=== PATIENT | female | born 1985 | race Caucasian/White ===

== ENCOUNTER 2021-12-24 10:35 | Emergency (ER) | payer OTHER, SELFPAY ==
[2021-12-24] VITALS (19 sets, daily range): BP systolic 105–139; BP diastolic 68–87; PULSE 48–87; RESP 7–15; TEMP 36.4–36.6; O2SAT 96–100
--- NOTE | ~2021-12-24 | XR_ITS ---
EXAMINATION: XR chest 2V DATE: 12/24/2021 11:41 INDICATION: Chest pain. Leg swelling. TECHNIQUE: PA and lateral views of the chest were obtained. COMPARISON: Chest radiograph dated 10/13/2018 FINDINGS: The lungs remain clear with no focal airspace opacities, pulmonary edema, pleural effusion or pneumot horax. The cardiomediastinal silhouette is normal. Mild to moderate thoracic spondylosis. Cholecystec diya clips in the right upper quadrant. IMPRESSION: 1. No acute cardiopulmonary disease. Reviewed, dictated and finalized at location B.
--- NOTE | 2021-12-24 11:20 | ECG_ITS ---
Measurements Intervals [place] Rate: 62 P: 55 WA: 215 QRS: 41 QRSD: 101 T: 37 QT: 440 QTc: 449 Interpretive Statements SINUS RHYTHM WITH FIRST DEGREE AV BLOCK INCOMPLETE RIGHT BUNDLE BRANCH BLOCK ABNORMAL ECG COMPARED TO ECG 10/13/2018 10:06:40 FIRST DEGREE AV BLOCK NOW PRESENT Electronically Signed On 12-25-2021 16:24:32 CDT by Jass Farrell M.D.
--- NOTE | 2021-12-24 11:27 | ED.GENADULT ---
HPI - General Adult General Chief complaint: Unspecified Stated complaint: bilat leg swelling Time Seen by Provider: 12/24/21 11:00 History of Present Illness HPI narrative: 36-year-old female presents to the emergency room for evaluation of bilateral lower extremity swelling for last 3 nights. Patient states at the end of the day her feet and ankles are swelling, commenting that is pitting edema. Patient is also complaining of increased fatigue, malaise, and swelling to her abdomen. Patient reports that she has a history of hypothyroidism, but has not had her TSH level checked in over 2 years. Patient complaining of hair falling out, easily bruising, and sensitivity to cold temperatures. Related Data Home Medications Medication Instructions Recorded Confirmed levothyroxine 50 mcg tablet 1 tablet DAILY 12/24/21 12/24/21 lumateperone 42 mg capsule 42 mg PO DAILY 12/24/21 12/24/21 (Caplyta) Allergies Allergy/AdvReac Type Severity Reaction Status Date / Time tree nut Allergy Unknown Anaphylactic Verified 12/24/21 11:13 Shock Review of Systems Review of Systems: CONSTITUTIONAL: Reports malaise EYES: Denies visual changes, redness, or discharge. ENT: Denies rhinorrhea, congestion, sore throat, or otalgia. CARDIOVASCULAR: Reports occasional chest pain RESPIRATORY: Reports occasional shortness of breath GASTROINTESTINAL: Denies abdominal pain, nausea, vomiting, or diarrhea. GENITOURINARY: Denies dysuria or hematuria. SKIN: Reports easily bruising MUSCULOSKELETAL: Denies back pain, joint pain, or myalgia. NEUROLOGIC: Reports increased weakness PSYCHIATRIC: Reports anxiety or depression. Exam Narrative: GENERAL: Well-appearing, well-nourished, and in no acute distress. HEAD: Normocephalic, atraumatic. EYES: PERRLA and EOMI. NECK: Supple. No adenopathy or masses. No carotid bruits or JVD CHEST: Clear to auscultation. No respiratory distress. No wheezes rales or rhonchi HEART: Regular rate and rhythm. No murmur heard. Normal peripheral pulses. ABDOMEN: Soft, nontender, nondistended, normal active bowel sounds. EXTREMITIES: Normal range of motion. No edema. SKIN: Warm, dry, no rash. NEURO: No focal deficits. Alert and oriented x3. PSYCH: Normal mood and affect. Course Vital Signs Vital signs: Vital Signs Temperature 36.4 C L 12/24/21 10:47 Pulse Rate 72 12/24/21 10:47 Respiratory Rate 15 12/24/21 10:47 Blood Pressure 139/87 12/24/21 10:47 Pulse Oximetry 100 12/24/21 10:47 Oxygen Delivery Room Air 12/24/21 10:47 Temperature 36.4 C L 12/24/21 10:47 Pulse Rate 51 L 12/24/21 13:45 Respiratory Rate 8 L 12/24/21 13:45 Blood Pressure 106/68 12/24/21 13:31 Pulse Oximetry 96 12/24/21 13:45 Oxygen Delivery Room Air 12/24/21 10:47 Medical Decision Making MDM Narrative Medical decision making narrative: 36-year-old female presents with evidence of swelling to bilateral lower extremities. There is no evidence of volume overload on exam, no evidence of renal failure, heart failure, or liver failure. TSH was within normal limits. EKG and chest x-ray showed no acute cardiopulmonary abnormalities. Discussed findings with patient, and referred her back to her PCP for further work-up. Vital Signs Vital Signs: Vital Signs Temperature 36.4 C L 12/24/21 10:47 Pulse Rate 72 12/24/21 10:47 Respiratory Rate 15 12/24/21 10:47 Blood Pressure 139/87 12/24/21 10:47 Pulse Oximetry 100 12/24/21 10:47 Oxygen Delivery Room Air 12/24/21 10:47 Temperature 36.4 C L 12/24/21 10:47 Pulse Rate 51 L 12/24/21 13:45 Respiratory Rate 8 L 12/24/21 13:45 Blood Pressure 106/68 12/24/21 13:31 Pulse Oximetry 96 12/24/21 13:45 Oxygen Delivery Room Air 12/24/21 10:47 Lab Data Result diagrams: 12/24/21 11:54 12/24/21 11:54 Labs: Lab Results 12/24/21 12/24/21 12/24/21 Range/Units 11:54 11:54 12:36 WBC 8.5 (4.5-10.0)
--- NOTE | 2021-12-24 11:38 | PC.NURSE ---
Pt off floor to radiology.
[2021-12-24 12:06] LABS: Basophils Absolute Auto 0.1 K/mm3 (0.0-0.1); Basophils Percent Auto 0.8 % (0.2-1.2); Eosinophils Absolute Auto 0.3 K/mm3 (0-0.3); Eosinophils Percent Auto 3.5 % (0-4.4); Hematocrit 35.9 % (37.0-47.0); Hemoglobin 10.8 g/dL (12.0-15.0); Immature Granulocyte Absolute 0.02 K/mm3 (0.00-0.031); Immature Granulocyte Percent A 0.2 % (0-0.5); Lymphocytes Absolute Auto 1.66 K/mm3 (0.9-3.2); Lymphocytes Percent Auto 19.6 % (18.3-44.2); Mean Corpuscular HGB Conc 30.1 g/dl (32-36); Mean Corpuscular Volume 76.4 fl (80-100); Mean Platelet Volume 11.2 fl (7.4-10.4); Monocytes Absolute Auto 0.4 K/mm3 (0.1-0.6); Monocytes Percent Auto 4.8 % (2.6-8.5); Neutrophils Percent Auto 71.1 % (45.5-73.1); Platelet Count Result 366 k/mm3 (150-375); Red Cell Distribution Width 15.8 % (11.5-14.5); White Blood Count 8.5 K/mm3 (4.5-10.0)
[2021-12-24 12:16] LABS: Alanine Aminotransferase 18 U/L (6-35); Albumin Level 4.2 g/dL (3.5-5.1); Alkaline Phosphatase 56 U/L (38-126); Anion Gap 8 mmol/L (8-16); Aspartate Amino Transferase 26 U/L (14-36); Bilirubin,Total 0.4 mg/dL (0.2-1.3); Blood Urea Nitrogen 10 mg/dL (7-17); Calcium 8.7 mg/dL (8.4-10.2); Carbon Dioxide 26 mmol/L (22-30); Chloride 105 mmol/L (98-107); Estimated CRCL calculation 95 ml/min; Estimated Glomerular Filt Rate > 60; Glucose 97 mg/dL (65-110); Potassium 4.3 mmol/L (3.4-5.0); Sodium 139 mmol/L (137-145)
[2021-12-24 12:27] LABS: NT Pro B Type Natriuretic Pept 107 pg/mL (5-100)
[2021-12-24 12:31] LABS: Troponin I < 0.012 ng/mL (0.000-0.034)
[2021-12-24 13:28] LABS: Add Urine Microscopic? YES; Appearance Urine Clear (Clear); Bilirubin Urine 1+ (Negative); Blood Urine 3+ (Negative); Color Urine Yellow (Yellow); Glucose Urine UA Negative (Negative); Ketones Urine Trace mg/dL (Negative); Leukocyte Esterase Ur Negative LEU/UL (Negative); Mucus Urine Moderate /lpf; Nitrate Urine Negative (Negative); Protein Urine 1+ mg/dL (Negative); RBC Urine >75 /hpf (0-2); Specific Grav Ur >= 1.030 (1.001-1.035); Squamous Epithelial Cell Urine Occasional /hpf (Few); Urobilinogen Urine 0.2 mg/dL (<2.0); pH Urine 6.5 (5.0-9.0)
== END 2021-12-24 14:28 | disposition home or self-care (01) ==
PROVIDERS: Emergency Provider Nurse Practitioner Family
DX: R60.0 Localized edema (principal); E03.9 Hypothyroidism, unspecified; I44.0 Atrioventricular block, first degree; I45.10 Unspecified right bundle-branch block
CPT/HCPCS: 36415; 71046; 80053; 81001; 83880; 84443; 84484; 85025; 87086; 87088; 93005; 99284

== ENCOUNTER 2022-12-23 11:14 | Emergency (ER) | payer OTHER, SELFPAY ==
[2022-12-23 11:21] VITALS: BP 114/77; PULSE 75; RESP 16; TEMP 36.3; O2SAT 98
--- NOTE | 2022-12-23 11:30 | ED.URI ---
HPI - URI/Sore Throat General Chief Complaint: Upper Respiratory Infection Stated Complaint: cough/trouble breathing History of Present Illness HPI Narrative: Pt is a 37 y/o female, PMHx of asthma and tobacco dependency, presents to EC one week hx of increased coughing, wheezing and SOB. She began running fevers two days ago and now associates left otalgia. She is taking OTC cold medications and APAP/Motrin with adequate fever relief. She ran out of her albuterol inhaler and no longer has nebulizer solution at home. she continues to smoke. She denies chance of , known sick contacts or COV exposures. Related Data Allergies Allergy/AdvReac Type Severity Reaction Status Date / Time tree nut Allergy Unknown Anaphylactic Verified 12/24/21 11:13 Shock Review of Systems Constitutional: Comments: refer to HPI, tmax reported 101F ENT: Comments: refer to HPI Cardiovascular: Comments: no chest pain, palpitations or syncope Respiratory: Comments: cough, wheezing, refer to HPI Exam Const: General: cooperative, healthy appearing, comfortable and no acute distress Nutritional Appearance: average body habitus Orientation/consciousness: oriented to person, oriented to place, oriented to time and patient oriented x3 Limitations: no limitations Other: pt appears older than stated age. She smells heavily of cigarette smoke She is in NAD HENMT: Head: normal to inspection and normocephalic Ears: TM normal on the right and TM abnormal (left tm is erythematous with purulent effusion. serous pattern to right ear) Face and sinus: face symmetric and other (frontal and maxillary sinuses are TTP. nasal mucosa is erythematous ) Throat: posterior oropharynx normal, tonsils normal and uvula midline Eyes: General: appearance normal, both eyes and all related structures Visual Oquendo: normal visual oquendo by confrontation Alignment and Position: alignment normal Conjunctivae: conjunctivae normal Neck: Neck: normal visual inspection, full ROM, no lymphadenopathy and no meningeal signs Resp: Auscultation: wheezes (End I and end E wheezing noted throughout lung oquendo) Other: no rales or rhonchi noted Cardio: Palpation: normal PMI Rate: regular rate Rhythm: regular rhythm Heart sounds: S1 normal heart sound present and S2 normal heart sound present GI: Inspection: normal to inspection Back/Spine/Pelvis: Back: no CVA tenderness Skin: General skin exam: normal color Rashes: no rashes Neuro: General: oriented to person, oriented to place, oriented to time and patient oriented x3 Cranial nerves: Yes CN's II-XII intact bilaterally Extrem: Other: no lower extremity edema, no calf TTP Course Course Emergency Course: plan: to treat with oral abx for left AOM, steroid taper, inhaler and nebulizer solution refilled. Pt will FU with PCP if symptoms are not resolving in 3 days, ER if condition worsens. Level of Care: Express Care Visit ([id number]) Vital Signs Vital signs: Vital Signs Temperature 36.3 C L 12/23/22 11:21 Pulse Rate 75 12/23/22 11:21 Respiratory Rate 16 12/23/22 11:21 Blood Pressure 114/77 12/23/22 11:21 Pulse Oximetry 98 12/23/22 11:21 Oxygen Delivery Room Air 12/23/22 11:21 Temperature 36.3 C L 12/23/22 11:21 Pulse Rate 75 12/23/22 11:21 Respiratory Rate 16 12/23/22 11:21 Blood Pressure 114/77 12/23/22 11:21 Pulse Oximetry 98 12/23/22 11:21 Oxygen Delivery Room Air 12/23/22 11:21 MDM - URI/Sore Throat MDM Narrative Medical decision making narrative: abx, steroids, inhaler/nebulizer Differential Diagnosis Differential diagnosis: Likely upper respiratory infection, otitis media, sinusitis, viral infection, bronchitis and other (pneumonia) Discharge Plan Discharge Clinical Impression: Acute left otitis media, Bronchitis Patient Disposition: Home, Self-Care Condition: Stable Instructions: Antibiotic Form, How to
== END 2022-12-23 11:57 | disposition home or self-care (01) ==
PROVIDERS: Emergency Provider Nurse Practitioner Family
DX: J40 Bronchitis, not specified as acute or chronic (principal); H66.92 Otitis media, unspecified, left ear
CPT/HCPCS: 99213; G0463

== ENCOUNTER 2024-07-19 16:42 | Emergency (ER) | payer OTHER, SELFPAY ==
[2024-07-19 16:45] VITALS: BP 107/63; PULSE 88; RESP 16; TEMP 36.6; O2SAT 98
--- NOTE | 2024-07-19 16:52 | ED_ITS ---
HPI - URI/Sore Throat General Chief Complaint: Upper Respiratory Infection Stated Complaint: cough/chills Time Seen by Provider: 07/19/24 16:55 Source: patient, RN notes reviewed and old records reviewed Mode of arrival: ambulatory Limitations: no limitations History of Present Illness HPI Narrative: 39 year old female who presents to [facility] care with complaints of having cough starting yesterday, denies any known fever admits to some general malaise and chills with some scratchy throat. Patient reports that she has been taking Ibuprofen for her symptoms. MD elicited complaint: cough Pertinent past history: asthma and other (bronchitis, tobacco use) Onset (ago): day(s) (2) Able to tolerate fluids by mouth: Yes Treatments prior to arrival: ibuprofen Related Data Allergies Allergy/AdvReac Type Severity Reaction Status Date / Time tree nut Allergy Unknown Anaphylactic Verified 12/24/21 11:13 Shock Review of Systems Review of Systems: CONSTITUTIONAL: Reports malaise, chills, sweats, no known fever. EYES: Denies visual changes, redness, or discharge. ENT: Reports rhinorrhea, congestion, sinus pain, no otalgia and scratchy sore throat. CARDIOVASCULAR: Denies chest pain, palpitations, or edema. RESPIRATORY: Reports cough.? Denies dyspnea. GASTROINTESTINAL: Denies abdominal pain, nausea, vomiting, diarrhea SKIN: Denies rash or itching. MUSCULOSKELETAL: Denies myalgia. NEUROLOGIC: Denies headache. All systems reviewed & are unremarkable except as noted in HPI and below PMFSH Past Medical History Medical History (Updated 07/21/24 @ 10:50 by Gina Hoover NP) DVT (deep venous thrombosis) 2008 Asthma Bronchitis Kidney stones Hypothyroidism Surgical History Surgical History (Updated 07/21/24 @ 10:43 by Gina Hoover NP) History of cholecystectomy H/O tubal ligation Social History Social History (Updated 07/21/24 @ 10:40 by Gina Hoover NP) Smoking packs per day: 0.5 Smoking cigarettes per day: 10.0 Smoking status: Current every day smoker Tobacco type: cigarettes Alcohol intake: current Alcohol use details: social Substance use type: does not use Gender identity (if verbalized by the patient): Female Comments At time of signature, agree with nursing past medical, surgical, social and family history. There is no relevant family history pertinent to the presenting complaint Exam Narrative: GENERAL: Well-appearing, well-nourished, and in no acute distress. HEAD: Normocephalic EYES: PERRLA, conjunctivae clear ENT: Nares clear, turbinates edematous and erythematous, clear discharge. Mucous membranes moist. TM pearly hutchins with dull light reflex bilaterally; no tragal tenderness. Oropharynx erythematous without lesions. Tonsils not enlarged and without exudate, no drooling, no hoarseness, no trismus, uvula midline.post nasal drainage NECK: Supple. No lymphadenopathy CHEST: Clear to auscultation, breath sounds equal. No wheezing, rhonchi, rales, or stridor. No respiratory distress, speaks in full sentences.dry cough noted SAO2 98% on room air HEART: Regular rate and rhythm. No murmur heard. SKIN: Warm, dry, no rash. NEURO: Alert and oriented x3. PSYCH: Normal mood and affect Course Course Emergency Course: Patient is aware of diagnosis, understands and agrees to treatment plan.? Anticipatory guidance given.? Patient agrees to follow-up as directed and is aware of reasons to seek care at the emergency department. Portions of this record may have been created with voice recognition software Level of Care: Express Care Visit Vital Signs Vital signs: Vital Signs Temperature 36.6 C 07/19/24 16:45 Pulse Rate 88 07/19/24 16:45 Respiratory Rate 16 07/19/24 16:45 Blood Pressure 107/63 07/19/24 16:45 Pulse Oximetry 98 07/19/24 16:45 Oxygen Delivery Room Air 07/19/24 16:45 Temperature 36.6 C 07/19/24 16:53 Pulse Rate 88 07/19/24 16:53 Respiratory Rate 16 07/19/24 16:53 Blood Pressure 107/63 07/19/24 16:53 Pulse Oximetry 98 07/19/24 16:53 Oxygen Delivery Room Air 07/19/24 16:45 Reviewed MDM - URI/Sore Throat MDM Narrative Medical decision making narrative: Differential diagnosis considered: Art virus, strep pharyngitis, allergic rhinitis, upper respiratory tract infection, sinusitis, rhinosinusitis, nasopharyngitis. viral pharyngitis, otitis media, otitis externa, pneumonia, bronchitis, viral cough syndrome, viral syndrome, and influenza.? Exam findings show no acute concerns or changes; patient is non-toxic appearing and is in no distress.? Patient is appropriate for outpatient treatment and follow-up. Differential Diagnosis Differential diagnosis: Likely upper respiratory infection, viral infection, pharyngitis and other (cough) Medical Records Attestation: I reviewed the patient's medical records. Lab Data Attestation: I reviewed the patient's lab results. Lab results narrative: Covid antigen negative, Influenza A negative,Influenza B negative Labs: Lab Results 07/19/24 Range/Units 16:50 POC Influenza A Ag Negative (Negative) POC Influenza B Ag Negative (Negative) POC SARS CoV-2 Ag Negative (Negative) reviewed Critical Care Time Critical Care Time Critical Care Time: No Discharge Plan Discharge Clinical Impression: Cough in adult Upper respiratory infection Qualifiers: URI type: unspecified URI Qualified Code(s): J06.9 - Acute upper respiratory infection, unspecified Patient Disposition: Home, Self-Care Condition: Stable Instructions: Antibiotic Form Additional Instructions: Increase fluids especially juices and water [id number] cough and cold medicine of your choice for your symptoms Kell daily and may include plain Sudafed daily for congestion Continue your inhaler/nebulizer as directed Steroids as directed--take with food heat to the face 20-30 minutes 4-6 times a day for pain Salt water gargles, throat lozenges or throat sprays as desired If your symptoms persist, change or worsen significantly before you can contact your personal physician then please, without delay, go to the emergency department for further evaluation. Follow-up with PCP in 7-10 days or sooner if needed Patient Language: Bulgarian Prescriptions: New prednisone 20 mg tablet 20 mg PO BID Qty: 10 0RF Rx Instructions: take with food fexofenadine [Kell Allergy] 180 mg tablet 180 mg PO DAILY Qty: 20 0RF albuterol sulfate 90 mcg/actuation HFA aerosol inhaler 2 puff inhalation QID PRN (Reason: shortness of breath or wheezing) Qty: 8.5 0RF No Action prednisone 10 mg tablets,dose pack See Taper PO DAILY 12 Days Qty: 42 0RF Taper: Prednisone Taper from 60 mg;12 days 60 mg DAILY for 2 Days and 0 Hour 50 mg DAILY for 2 Days and 0 Hour 40 mg DAILY for 2 Days and 0 Hour 30 mg DAILY for 2 Days and 0 Hour 20 mg DAILY for 2 Days and 0 Hour 10 mg DAILY for 2 Days and 0 Hour albuterol sulfate [Proventil HFA] 90 mcg/actuation HFA aerosol inhaler 1 inh inhalation QID PRN (Reason: shortness of breath or wheezing) Qty: 8.5 0RF amoxicillin-pot clavulanate 875-125 mg tablet 1 tablet PO Q12H Qty: 20 0RF albuterol sulfate 2.5 mg /3 mL (0.083 %) solution for nebulization 2.5 mg inhalation Q4H PRN (Reason: wheezing) Qty: 90 0RF Follow-up/Referrals: Charla,Essence Murillo MD [Primary Care Provider] - Time of Disposition: 17:19 Quality [place] Coma Scale Eyes: Open Verbal: Oriented and Alert Motor: Follows Commands Silvio Coma Total Score: 15
[2024-07-19 16:53] VITALS: BP 107/63; PULSE 88; RESP 16; TEMP 36.6; O2SAT 98
[2024-07-19 17:11] LABS: EDCOVIDSCREEN Negative (Negative); EDINFLUASCREEN Negative (Negative); EDINFLUBSCREEN Negative (Negative)
== END 2024-07-19 17:30 | disposition home or self-care (01) ==
PROVIDERS: Emergency Provider Registered Nurse; PCP Family Medicine
DX: J06.9 Acute upper respiratory infection, unspecified (principal); E03.9 Hypothyroidism, unspecified; F17.210 Nicotine dependence, cigarettes, uncomplicated; Z86.718 Personal history of other venous thrombosis and embolism; Z20.822 Contact with and (suspected) exposure to COVID-19
CPT/HCPCS: 87426; 87804; 99213; G0463

== ENCOUNTER 2024-10-19 11:57 | Emergency (ER) | payer OTHER, SELFPAY ==
--- OUTSIDE RECORDS SUMMARY | 2024-10-19 11:59 | XMS_ITS | Encounter Summary ---
Author Organization [facility] Address [address] [place] [address] Phone Care Team Providers Care Director Style Name Role Phone Provider, None Primary Care Provider Unavailabl e Encounter Details Date Type Department Care Team (Latest Contact Info) Description 06/08/2024 Transcribe Orders [facility] Central Scheduling [address] [place] [id number] Provider, None [place] Hyperprolactinemia (HCC) (Primary Dx) Social History Tobacco Use Types Packs/Day Years Used Date Smoking Tobacco: Every Day Cigarettes E-Vapor with Nicotine Smokeless Tobacco: Never Alcohol Use Standard Drinks/Week Comments No 0 (1 standard drink = 0.6 oz pur e alcohol) Comments No Sex and Gender Information Value Date Recorded Sex Assigned at Not on file Legal Sex Female 11:12 PM CDT Gender Identity Not on file Sexual Orientation Not on file documented as of this encounter Plan of Treatment Scheduled Orders Name Type Priority Associated Diagnoses Orde r Schedule UR TEST QUAL Lab Routine Hyperprolactinemia (HCC) Expected: 06/08/2024, Expires: 06/08/2025 documented as of this encounter Visit Diagnoses Diagnosis Hyperprolactinemia (HCC)- Primary Other and unspecified anterior pituitary hyperfunction documented in this encounter Care Teams Director Style Relationship Specialty Start Date End Date Provider, None [place] PCP - General 01/16/23 documented as of this encounter
--- OUTSIDE RECORDS SUMMARY | 2024-10-19 11:59 | XMS_ITS | Clinical Summary ---
Author Organization [facility] Address [address] [facility] [place] [address] Phone Care Team Providers Care Biztalk Developer Name Role Phone Provider, None Primary Care Provider Unavailabl e Allergies Active Allergy Reactions Criticality Noted Date Comments Other Anaphylaxis 09/25/2017 TREE NUTS Medications Venlafaxine HCl (EFFEXOR XR PO) Take by mouth daily. PT DOES NOT REMEMBER DOSAGE; PHARMACY CLOSED Active ALPRAZolam (XANAX) 1 MG Tablet Take 1 Tab by mouth daily. 30 Tab 8 Active methocarbamol (ROBAXIN-750) 750 MG Tablet Take 1 Tab by mouth 4 times daily as needed (muscle spasm). 40 Tab 8 Active traMADol (ULTRAM) 50 MG Tablet Take 1 Tab by mouth every 6 hours as needed for Mild or more severe pain or Moderate or more severe pain. 15 Tab 8 Active albuterol 108 (90 Base) MCG/ACT Aerosol Solution take 2 Puffs by inhalation every 6 hours as needed for Cough. 1 Inhaler 9 Active Active Problems Problem Noted Date Diagnosed Date Sepsis 09/25/2017 Pneumonia of left upper lobe due to infectious o rganism 09/25/2017 Asthma exacerbation 09/25/2017 Elevated d-dimer 09/25/2017 Anxiety 09/25/2017 Nicotine dependence 09/25/2017 Immunizations Immunization Administration Dates Next Due DTP Vaccine 12/05/1991, 8,1987,1986,1986 Hepatitis B Vaccine, Pediatric/adolescent 06/06/1997,03/14/1997,02/07/1997 Influenza Vaccine,unspecifie d Formulation 05/22/2003 MMR Vaccine 12/05/1991,09/24/1987 OPV 12/05/1991, 8,1987,1986,1986 TDAP Vaccine 01/16/2023 Social History Tobacco Use Types Packs/Day Years [...] on file Sexual Orientation Not on file Last Filed Vital Signs Vital Sign Reading Time Taken Comments Blood Pressure 138/74 01/16/2023 7:44 PM CDT Pulse 83 01/16/2023 7:44 PM CDT Temperature 37.2 C (99 F) 01/16/2023 7:44 PM CDT Respiratory Rate 18 01/16/2023 7:44 PM CDT Oxygen Saturation 100% 01/16/2023 7:44 PM CDT Inhaled Oxygen Concentration - - Weight 64.4 kg (142 lb) 01/16/2023 7:44 PM CDT Height 157.5 cm (5' 2 ) 01/16/2023 7:44 PM CDT Body Mass Index 25.97 01/16/2023 7:44 PM CDT Plan of Treatment Health Maintenance Due Date Last Done Comments Hepatitis C Virus (HCV) Screening 1986 Pneumococcal Immunization Combined (1 of 2 - PCV) 2005 Pap Smear 2007 Cervical Cancer Screening (CCS) 2016 HPV/Cotest 2016 SARS-COV-2 Immunization ( season) 2024 01/28/2023, 03/09/2022, 11/12/2020 DTaP/Tdap/Td Immunization (7 - Td or Tdap) 01/16/2033 01/16/2023, 12/05/1991, 01/28/1988, Additional history exists Respiratory Syncytial Virus (RSV) Immunization (Adult) (1 - 1-dose 75+ series) 2061 Hepatitis B Immunization Completed 997, 03/14/1997, 02/07/1997 Influenza Immunization Completed 04/19/2024, 2002 Meningococcal Immunization (ACWY) Aged Out No longer eligible based on patient's age to complete this topic Rotavirus Immunization Aged Out No lo nger eligible based on patient's age to complete this topic Insurance MEDICAID [employer] Advance Directives * Full Code (Latest Code Status on File) Date Activated Date Inactivated Comments 09/25/2017 7:46 PM 09/26/2017 1:15 PM CPR-Full [place] atment: FULL ARREST: Attempt Resuscitation/CPR wit intubation and mechanical ventilation. PRE-ARREST: Use entire range of life support measures to stabilize the patient. Care Teams Biztalk Developer Relationship Specialty Start Date End Date Provider, None [place] PCP - General 01/16/23
--- OUTSIDE RECORDS SUMMARY | 2024-10-19 11:59 | XMS_ITS | Clinical Summary ---
Author Organization [facility] Address [address] [place] [address] Phone Care Team Providers Care Hospital Liaison Name Role Phone Unavailable Primary Care Provider Unavailabl e Allergies No known active allergies Medications ibuprofen (MOTRIN) 600 mg tablet Take 1 Tablet (600 mg) by mouth every 6 hours as needed for Pain, Mild. 20 Tablet None 6 Active oxyCODONE-aceta minophen (PERCOCET) 5-325 mg tablet Take 1-2 Tablet by mouth every 6 hours as needed for Pain You cannot drive, operate heavy machinery, drink alcohol or take other pain medications while you are taking this medication.. Max Daily Amount: 8 Tablet 20 Tablet None 6 Active penicillin V potassium (VEETID) 500 mg tablet Take 1 Tablet (500 mg) by mouth 4 times daily. 28 Tablet None 6 Active naproxen (NAPROSYN) 500 mg tablet Take 1 Tablet (500 mg) by mouth 2 times daily with meals Po pc bid. 20 Tablet None 6 Active HYDROcodone-angelina taminophen (NORCO) 5-325 mg tablet Take 1 Tablet by mouth every 4 hours as needed for Pain, Severe. Max Daily Amount: 6 Tablet 10 Tablet None 6 Active Active Problems Problem Noted Date Diagnosed Date Cigarette dependence 11/25/2015 Social History Tobacco Use Types Packs/Day Years Used Date Smoking Tobacco: Every Day Cigarettes Alcohol Use Standard Drinks/Week Comments No 0 (1 standard drink = 0.6 oz pur e alcohol) Comments Unknown Sex and Gender Information Value Date Recorded Sex Assigned at Not on file Legal Sex Female 4:59 PM CDT Gender Identity Not on file Sexual Orientation Not on file Last Filed Vital Signs Vital Sign Reading Time Taken Comments Blood Pressure 113/83 11/25/2015 7:50 PM CDT Pulse 75 11/25/2015 7:00 PM CDT Temperature 36.8 C (98.2 F) 11/25/2015 5:05 PM CDT Respiratory Rate 18 11/25/2015 5:05 PM CDT Oxygen Saturation 98% 11/25/2015 7:00 PM CDT Inhaled Oxygen Concentration - - Weight 54.4 kg (120 lb) 11/25/2015 5:05 PM CDT Height 157.5 cm (5' 2 ) 11/25/2015 5:05 PM CDT Body Mass Index 21.95 11/25/2015 5:05 PM CDT Plan of Treatment Health Maintenance Due Date Last Done Comments DTAP/TDAP/TD VACCINES (1 - Tdap) 2005 HEPATITIS B VACCINES (1 of 3 - 19+ 3-dose series) 2005 HPV/Cotest (21-29) 2007 CERVICAL CANCER SCREENING 2016 HPV/Cotest (30-65) 2016 PAP SMEAR 2016 INFLUENZA VACCINE (#1) 2024 HPV VACCINES Aged Out No longer eligi ble based on patient's age to complete this topic
--- OUTSIDE RECORDS SUMMARY | 2024-10-19 11:59 | XMS_ITS ---
Author Organization [facility] Address [address] [place] [address] Care Team Providers Care Loan Workout Officer Name Role Phone Becky Ron Primary Care Provider Allergies No Known Allergies REASON FOR VISIT Walk-In Medications Medication SIG (Take, Route, Frequency, Duration) Notes Start Date End Date Status Senna 8.6 MG 1-2 tablets at bedtime as needed Orally Once a day for 30 days As needed for constipation 09/11/2024 Active Pregabalin 150 MG 1 capsule Orally 2 x daily [facility] [place] Active Ondansetron HCl 4 MG 1 tablet Orally up to three times daily As needed nausea 06/15/2024 Active Buprenorphine HCl-Naloxone HCl 12-3 MG 1 film under the tongue and allow to dissolve Sublingual Three times a day for 30 days 10/12/2024 Active traZODone HCl 100 MG 1 tablet at bedtime Orally Once a day for 30 days 05/15/2024 Active Social History Tobacco Use: Social History Observation Description Date Details (start date - stop date) Current Smoker NA - NA Sex Assigned At : Social History Observation Description Sex Assigned At Female Tobacco Control (Standard) Question Answer Notes Tobacco use: Current every day smoker Additional Findings: Tobacco user Light cigarett e smoker (1-9 cigs/day) Vital Signs Weight 124 lb 6 oz lbs 10/12/2024 Height 60 in 10/12/2024 BMI 24.29 kg/m2 10/12/2024 Blood pressure systolic 138 mm Hg 10/13/19 25 Blood pressure diastolic 92 mm Hg 025 Heart Rate 103 /min 10/12/2024 Oximetry 98 % 10/12/2024 Respiratory Rate 16 /min 10/12/2024 Encounters Encounter Location Date Provider Diagnosis Formerly [facility] [place] [place] [address] 10/12/2024 Becky Ron Opioid use disorder F11.99 Assessments Encounter Date Diagnosis (ICD Code) Assessment Notes Treatment Notes Treatment Clinical Notes Section Notes 10/12/2024 Opioid use disorder (ICD-10 - F11.99) 10/12/2024 Other Discussed medication side effects, adverse effects, risks, benefits, as well as interactions. Encouraged non-use of opioids. Has naloxone. Recommended participation in recovery groups and/or counseling services. May contact office with questions or concerns. Plan Of Treatment Medication Medication Name Sig Start Date Stop Date Notes Ondansetron HCl 4 MG 1 tablet Orally up to three times daily 06/15/2024 Buprenorphine HCl-Naloxone H Cl 12-3 MG 1 film under the tongue and allow to dissolve Sublingual Three times a day for 30 days 10/12/2024 Treatment Notes Assessment Notes Other Discussed medication side effects, adverse effects, risks, benefits, as well as interactions. Encouraged non-use of opioids. Has naloxone. Recommended participation in recovery groups and/or counseling services. May contact office with questions or concerns. Next Appt Details Follow Up: 4 Weeks, Reason: MAR f/u Progress Notes * Thuan VICTORIAOB:1984 (39 yo F)Acc No.[id number]:10/12/2024 Patient: Vijaya CUMMINGS Provider: Jewell Ron, MSN, GLOBAL CLIMATE CHANGE RESEARCHER, AMUSEMENT RIDE OPERATOR-C :1985 A ge:39 Y S ex:Female Date:10/12/2024 Address: [address], [id number] Check In:09:14 AM CHIEF EXECUTIVE Subjective: * Chief Complaints: * W alk-In * HPI: M AR follow-up: Appointment via Zoom. Vijaya presents for MAR f/u for treatment of OUD. Has been taking buprenorphine as prescribed. Reports experiencing nausea as side effect and requesting zofran to take as needed. Reports no use of opioids and reports cravings have been manageable. Medication Monitoring and Risk Mitigation U p-to-date on ASAM recommended lab testing??Yes P rescribed a buprenorphine product? Y es H as patient had a buprenorphine and metabolite lab ordered/collected? Y es (see notes for date of last metabolite testing) D ate of last buprenorphine and metabolite?09/11/2024 P rescription Drug Monitoring Program Review?Yes. No concerns at this time. P regi to address any concerns identified: N o concerns identified. Will continue treatment plan as is. Cravings, Setbacks, Substance use, and Stressors C ravings since last visit: N o. Patient denies cravings since last visit. S etbacks since last visit? N o, patient denies setbacks since last visit. M isuse of substances since last visit: N o, patient denies. S tressors N o, patient denies stressors at this time. Withdrawal and Intoxication Symptoms I ntoxication Symptoms: N o signs of intoxication are present during visit. W ithdrawal Symptoms: N o withdrawal signs are present during visit. Mental Health, Support System, and Social Determinants M ental Health Status S table. S upport Systems Include: P ersonal support system (see notes). C ourt System Involvement? N o H ousing Stability: S table and safe housing. 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 R eferrals needed: N o referrals needed at this time. Recommended Wellness and Prevention Follow-up R ecommended Wellness and Prevention reviewed:?Yes. No additional orders/actions needed at this time. Other concerns: O ther Concerns? N o. N arcan need N o. Patient already has Narcan. I nterim History: Emergency room visit N o. Was hospitalized N o. D epression Screening: PHQ-9 L ittle interest or pleasure in doing things?Several days F eeling down, depressed, or hopeless S everal days T rouble falling or staying asleep, or sleeping too much S everal days F eeling tired or having little energy S everal days P oor appetite or overeating S everal days F eeling bad about yourself or that you are a failure, or have let yourself or your family down N ot at all T rouble concentrating on things, such as reading the newspaper or watching television N ot at all M oving or speaking so slowly that other people could have noticed; or the opposite, being so fidgety or restless that you have been moving around a lot more than usual N ot at all T houghts that you would be better off or of hurting yourself in some way N ot at all T otal Score 5 I nterpretation M ild Depression C SSRS Interpretation and Follow Up Plan: CSSRS Interpretation and Follow Up Plan C SSRS Screen documented using SF Y es R isk Disposition from SF L ow - No Follow Up Plan Required F ollow Up Plan N o Follow Up Plan required at this time. T imeframe of Screening T lazaro S creening: [place] Suicide Severity Rating Scale (LF) D o you want to initiate with S creener form 1 . Wish to be : Have you wished you were or wished you could go to sleep and not wake up? N o 2 . Suicidal Thoughts: Have you actually had any thoughts of killing yourself? N o 6 . Suicide Behavior Question: Have you ever done anything,started to do anything, or prepared to end your life? N o I nterpretation: L ow Risk P reventative Health and Wellness follow-up: Action Plans for Clinical Quality Measures: C ervical Cancer Screening: N ot addressed during this visit. See notes for details. . * ROS: B asic ROS: Denies C hills. D enies S weats. A dmits C onstipation. D enies A nxiety. D enies D epressed Mood. D enies S uicidal Thoughts. * Medical History: * Surgical History: T ubal 2011Gallbladder Removal 2009 * Hospitalization/Major Diagno stic Procedure: C hild x5 * Family History: F ather: alive. M other: alive. 1 sister(s) - healthy. 2 son(s) , 3 daughter(s) - healthy. . Paternal Cardiac History. * Social History: P rimary Social History: L iving Arrangement L iving Arrangement: I ndependent Living I s this a supportive environment? Y es Alcohol Use A lcohol Use Frequency: N ever Illicit Substance Usage I llicit Substance Usage: Y es I nterested in quitting: Y es Employment Status E mployment Status: U nemployed T obacco Use: T obacco Control (Standard) T obacco use: C urrent every day smoker A dditional Findings: Tobacco user L ight cigarette smoker (1-9 cigs/day) M iscellaneous: M ethod of learning P referred method of learning: R iqrading * Medications: T akingBuprenorphine HCl-Naloxone HCl 12-3 MG Film 1 film under the tongue and allow to dissolve Sublingual Three times a day Senna 8.6 MG Tablet 1-2 tablets at bedtime as needed Orally Once a day As needed for constipationPregabalin 150 MG Capsule 1 capsule Orally 2 x daily , Notes to Pharmacist: [facility] BethaltotraZODone HCl 100 MG Tablet 1 tablet at bedtime Orally Once a day Ondansetron HCl 4 MG Tablet 1 tablet Orally up to three times daily As needed nauseaMedication List reviewed and reconciled with the patientTaking Buprenorphine HCl-Naloxone HCl 12-3 MG Film 1 film under the tongue and allow to dissolve Sublingual Three times a day Taking Senna 8.6 MG Tablet 1-2 tablets at bedtime as needed Orally Once a day As needed for constipationTaking Pregabalin 150 MG Capsule 1 capsule Orally 2 x daily , Notes to Pharmacist: [facility] BethaltoTaking traZODone HCl 100 MG Tablet 1 tablet at bedtime Orally Once a day Taking Ondansetron HCl 4 MG Tablet 1 tablet Orally up to three times daily As needed nauseaMedication List reviewed and reconciled with the patient * Allergies: N .K.D.A.no[Allergies Verified] Objective: * Vitals: I nitials: cv, Wt:124 lb 6 oz, Ht: 60, BMI:24.29, BP:138/92, HR:103, Oxygen sat %:98, RR:16, LMP: n/a, Pain scale:6. * Examination: G eneral Examination: GENERAL APPEARANCE: a ppointment via Zoom. PSYCH: s peech clear, alert, oriented x4, thought process logical, goal directed. Assessment: * Assessment: 1. O pioid use disorder - F11.99 (Primary) Plan: * Treatment: Value Reference Range T HC neg * C OC POS * M OP (OPI) neg * A MP POS * M ET POS * B AR neg * B ZO neg * M DMA neg * M TD neg * O XY neg * P CP neg * B UP POS 2.?Others? Notes: Discussed medication side effects, adverse effects, risks, benefits, as well as interactions. Encouraged non-use of opioids. Has naloxone. Recommended participation in recovery groups and/or counseling services. May contact office with questions or concerns.?? * Recommended Wellness and Pre vention Guidelines: * S kyrie eubanks L ast Done N ext Due A ction Taken N ONCOMPLIANT C ervical cancer screening - 0 10/12/2024 - * Procedure Codes: * Preventive Medicine: Counseling: S MOKING: Patient counselled on the dangers of tobacco use and urged to quit. . * Follow Up: 4 Weeks (Reason: SEP f/u) * * Sign off status: Completed true * Provider: Jewell Ron, MSN, GLOBAL CLIMATE CHANGE RESEARCHER, AMUSEMENT RIDE OPERATOR-C Date: 0 10/12/2024 Generated for Madelaine benitez/Syed/Riazransmitting on: 0 10/19/2024 11:59 AM CDT History and Physical Notes * HPI (History of Present Illness) Category Sub-Category Detail Notes Category Not es Interim History Was hospitalized No Emergency room visit No Depression Screening PHQ-9 Little inte rest or pleasure in doing things: Several days Feeling down, depressed, or hopeless: Se veral days Trouble falling or staying asleep, or sl eeping too much: Several days Feeling tired or having little energy: S everal days Poor appetite or overeating: Several day s Feeling bad about yourself o r that you are a failure, or have let yourself or your family down: Not at all Trouble concentrating on thi ngs, such as reading the newspaper or watching television: Not at all Moving or speaking so slowly that other people could have noticed; or the opposite, being so fidgety or restless that you have been moving around a lot more than usual: Not at all Thoughts that you would be b amanda off or of hurting yourself in some way: Not at all Total Score: 5 Interpretation: Mild Depression Screening [place] Suicide Sev erity Rating Scale (LF) Do you want to initiate with: Screener form 1. Wish to be : Have you wished you were or wished you could go to sleep and not wake up?: No 2. Suicidal Thoughts: Have you actually had any thoughts of killing yourself?: No 6. Suicide Behavior Question: Have you ever done anything,started to do anything, or prepared to end your life?: No Interpretation:: Low Risk MAR follow-up Medication Monitorin g and Risk Mitigation Up-to-date on ASAM recommended lab testing?: Yes Prescribed a buprenorphine product?: Yes Has patient had a buprenorphine and metabolite lab ordered/collected?: Yes (see notes for date of last metabolite testing) Date of last buprenorphine and metabolite: 09/11/2024 Prescription Drug Monitoring Program Rev iew: Yes. No concerns at this time. Plan to address any concerns identified:: No concerns identified. Will continue treatment plan as is. Cravings, Setbacks, Substanc e use, and Stressors Cravings since last visit:: No. Patient denies cravings since last visit. Setbacks since last visit?: No, patient denies setbacks since last visit. Misuse of substances since last visit:: No, patient denies. Stressors: No, patient denies stressors at this time. Withdrawal and Intoxication Symptoms Int oxication Symptoms:: No signs of intoxication are present during visit. Withdrawal Symptoms:: No withdrawal sign s are present during visit. Mental Health, Support Syste m, and Social Determinants Mental Health Status: Stable. Support Systems Include:: Personal suppo rt system (see notes). Court System Involvement?: No Housing Stability:: Stable and safe hous ing. 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 Referrals needed:: No referrals needed a t this time. Recommended Wellness and Pre vention Follow-up Recommended Wellness and Prevention reviewed:: Yes. No additional orders/actions needed at this time. Other concerns: Other Concerns?: No. Narcan need: No. Patient already has Kenan can. Preventative Health and Wellness follow-up Action Plans for Clinical Quality Measures: Cervical Cancer Screening:: Not addressed during this visit. See notes for details. . CSSRS Interpretation and Follow Up Plan CSSRS Interpretation and Follow Up Plan CSSRS Screen documented using SF: Yes Risk Disposition from SF: Low - No Follo w Up Plan Required Follow Up Plan: No Follow Up Plan requir ed at this time. Timeframe of Screening: Today Examination Category Sub-Category Detail Notes Category Not es General Examination GENERAL APPEARANCE: appointment vi a Zoom PSYCH: speech clear, alert, oriented x4, thought process logical, goal directed
--- OUTSIDE RECORDS SUMMARY | 2024-10-19 11:59 | XMS_ITS | Clinical Summary ---
Author Organization [facility] Address [address] [place] [address] Care Team Providers Care Public Health Sanitarian Technician Name Role Phone No, Physician Primary Care Provider [phone] Allergies No known active allergies Medications ALPRAZolam (XANAX) 1 mg tablet Take 1 tablet (1 mg total) by mouth 3 (three) times a day as needed for anxiety. 15 tablet 9 Active hydroCHLOROthia zide (HYDRODIURIL) 25 mg tablet Take 1 tablet (25 mg total) by mouth daily. 20 tablet 9 Active escitalopram (LEXAPRO) 10 mg tablet Take 1 tablet (10 mg total) by mouth daily. 20 tablet 9 Active lidocaine viscous (XYLOCAINE) 2 % solutionIndicat ions:Swich and spit Take 5 mL by mouth every 3 (three) hours 1 Bottle 9 Active amoxicillin-cla vulanate (AUGMENTIN) 875-125 mg per tablet Take 1 tablet by mouth every 12 (twelve) hours 14 tablet 9 Active albuterol HFA (PROVENTIL HFA,VENTOLIN HFA,PROAIR HFA) 90 mcg/actuation inhaler Inhale 2 puffs every 4 (four) hours as needed for shortness of breath 1 Inhaler 1 9 Active buprenorphine-n aloxone (SUBOXONE) 8-[address] 1 Film under the tongue 2 (two) times a day 2 Film 4 Active ondansetron (ZOFRAN) 4 mg tablet Take 1 tablet (4 mg total) by mouth every 6 (six) hours 12 tablet 5 Active Active Problems No known active problems Encounters Date Type Department Care Team Description 10/01/2024 7:58 AM CDT - 10/01/2024 9:46 AM CDT Emergency [facility] Emergency Department 1 [place] [address] Lauro Finch MD Nausea and vomiting, unspecified vomiting type (Primary Dx) Discharge Disposition: Discharge to home or self care from Last 3 Months Immunizations Immunization Administration Dates Next Due Tdap 05/01/2018(Deferred: Patient Ref used) Medical History Medical History Date Comments Asthma Anxiety History of opiate therapy Social History Tobacco Use Types Packs/Day Years Used Date Smoking Tobacco: Every Day Cigarettes Smokeless Tobacco: Never Alcohol Use Standard Drinks/Week Comments Yes 0 (1 standard drink = 0.6 oz pur e alcohol) occasional Personal Safety Answer Date Recorded Have you ever been in or are you currently in a harmful physical or emotional relationship or is someone making you feel afraid or unsafe? 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 Gender Identity Not on file Sexual Orientation Not on file Obstetrics History Last Filed Vital Signs Vital Sign Reading Time Taken Comments Blood Pressure 151/87 10/01/2024 7:34 AM CDT Pulse 92 10/01/2024 7:34 AM CDT Temperature 36.7 C (98 F) 10/01/2024 7:34 AM CDT Respiratory Rate 18 10/01/2024 7:34 AM CDT Oxygen Saturation 100% 10/01/2024 7:34 AM CDT Inhaled Oxygen Concentration - - Weight 56.9 kg (125 lb 7.1 oz) 10/01/2024 7:34 A M CDT Height 154.9 cm (5' 1 ) 10/01/2024 7:34 AM CDT Body Mass Index 23.7 10/01/2024 7:34 AM CDT Plan of Treatment Health Maintenance Due Date Last Done Comments Cervical Cancer Screening 1986 Depression Screening 1986 Hepatitis C Screening 1986 Varicella Vaccines (1 of 2 - 13+ 2-dose series) 1999 Regular Well Visit/Exam 18-64 2004 Pneumococcal vaccine <65 (1 of 2 - PCV) 2005 Influenza Vaccine (Season Ended) 2025 05/22/2003 DTaP/Tdap/Td Vaccine (7 - Td or Tdap) 01/16/2033 01/16/2023, 12/05/1991, 01/28/1988, Additional history exists Hepatitis B Screening Completed 06/06/1997 , 03/14/1997, 02/07/1997 HPV Vaccines Aged Out No longer eligi ble based on patient's age to complete this topic Procedures Procedure Name Priority Date/Time Associated Diagnosis Comments URINALYSIS, MICROSCOPIC ONLY STAT 10/01/2024 8:28 AM CDT URINALYSIS AND REFLEX TO MICROSCOPIC AND CULTURE STAT 10/01/2024 8:28 AM CDT EGFR STAT 10/01/2024 7:47 AM CDT DIFFERENTIAL AUTO STAT 10/01/2024 7:4 7 AM CDT LIPASE STAT 10/01/2024 7:47 AM CDT COMPREHENSIVE METABOLIC PANEL STAT 10/01/2024 7:47 AM CDT CBC WITH AUTO DIFFERENTIAL STAT 10/01/2024 7:47 AM CDT from Last 3 Months Results * (ABNORMAL) Urinalysis reflex to microscopic and culture Urine (10/01/2024 8:28 AM CDT) Color, ur [place] Clarity, ur Turbid(A) Clear [facility] (JOVANNY) Specific gravity, ur 1.038(H) 1.003 - 1.030 [facility] ([place]) pH, urine 6.0 [facility] ([place]) Comment: Interpretive Data U rine pH is affected by diet, medications, systemic acid-base disturbances, and renal tubular function. pH may affect urinary stone formation. For example, urine pH below 6.0 may help reduce the tendency for calcium phosphate stones and pH greater than 6.0 may reduce the tendency for uric acid stone formation. Source: [facility] [employer] Current Interpretive Data was last revised on 2017 Protein, ur ql 2+(A) Negative [facility] ([place]) Glucose, ur ql Trace(A) Negative [facility] ([place]) Ketones, ur 1+(A) Negative [facility] ([place]) Bilirubin, ur 1+(A) Negative [facility] ([place]) Blood, ur Negative Negative [facility] ([place]) Urobilinogen, ur 4.0(A) <2.0 mg/dL [facility] ([place]) Nitrite, ur Negative Negative [facility] ([place]) Leukocyte esterase, ur 3+(A) Negative [facility] ([place]) UA reflex comment Reflex to microscopic UA will be performed. [facility] ([place]) Urine 10/01/2024 8:28 AM CDT 10/01/2024 8:30 AM CDT us Lauro Finch MD LAB MICROBIOLOGY - GENERAL ORD ERABLES Final Result Performing Organization Address [facility]/ZIP Co de Phone Number SONYA ALEGRIA (JOVANNY) [address] [facility] [place] [address] * (ABNORMAL) Urinalysis, microscopic only (10/01/2024 8:28 AM CDT) WBC, ur 11-20(A) 0 - 5 /HPF RBC, ur 0-2 0 - 2 /HPF [facility] ([place]) Epithelial cells, squamous, ur 11-20(A) 0 - 5 /HPF [facility] ([place]) Comment:Suggestive of contam ination. Consider recollection by clean catch. Bacteria, ur Trace(A) [facility] ([place]) Mucous, ur Present(A) [facility] (JOV[place]NY) Calcium oxalate crystals, ur 2+(A) [facility] ([place]) Hyaline casts, ur 6-10 0 - 10 /LPF [facility] ([place]) Culture Reflex Comment Reflex to urine culture will be performed. [facility] ([place]) Urine 10/01/2024 8:28 AM CDT 10/01/2024 8:30 AM CDT us Lauro Finch MD LAB URINE ORDERABLES Final Res ult Performing Organization Address City/[facility]/ZIP Co de Phone Number SONYA ALEGRIA (JOVANNY) [address] [facility] [place] [address] * eGFR (10/01/2024 7:47 AM CDT) Pathologist [facility] eGFR >90 >=60 mL/min/1. 73 m2 Comment: Interpretive Data Reference Interval Normal >/= 90 mL/min/1.73m2 Mildly decreased* 60 - 89 mL/min/1.73m2 Mildly to moderately decreased 45 - 59 mL/min/1.73m2 Moderately to severely decreased 30 - 44 mL/min/1.73m2 Severely decreased 15 - 29 mL/min/1.73m2 Kidney Failure < 15 mL/min/1.73m2 *Relative to young adult level Estimated glomerular filtration rate is determined by the 2020 CKD-EPI equation recommended by the National Kidney Foundation (A Unifying Approach to GFR Estimation: Recommendations of the NKF-ASK Task Force on Reassessing the Inclusion of Race in Diagnosing Kidney Disease, JASN 2020). The CKD-EPI equation should not be used for patients with unstable renal function and has not been validated in children and those over 70. Current interpretive data was last reviewed 2021. Blood 10/01/2024 7:47 AM CDT 10/01/2024 7:52 AM CDT us Lauro Finch MD LAB BLOOD ORDERABLES Final Res ult SONYA ALEGRIA (CULDESAC) [address] [facility] [place] [address] * Differential, auto (10/01/2024 7:47 AM CDT) Neutrophil abs 4.5 1.5 - 6.5 K/cumm Imm gran abs 0.0 0.0 - 0.1 K/cumm [facility] ([place]) Lymphocyte abs 1.8 0.8 - 3.3 K/cumm [facility] ([place]) Monocyte abs 0.4 0.2 - 0.8 K/cumm [facility] ([place]) Eosinophil abs 0.3 0.0 - 0.5 K/cumm [facility] ([place]) Basophil abs 0.1 0.0 - 0.1 K/cumm [facility] ([place]) Neutrophil pct 63.6 % [facility] ([place]) Comment: Interpretive Data Percent cell count reference ranges are not reported, since discordance with absolute values may lead to misinterpretation of CBC data. Current Interpretive Data was last revised on 2017. Imm gran pct 0.1 % [facility] ([place]) Comment: Interpretive Data Percent cell count reference ranges are not reported, since discordance with absolute values may lead to misinterpretation of CBC data. Current Interpretive Data was last revised on 2017. Lymphocyte pct 25.9 % [facility] ([place]) Comment: Interpretive Data Percent cell count reference ranges are not reported, since discordance with absolute values may lead to misinterpretation of CBC data. Current Interpretive Data was last revised on 2017. Monocyte pct 5.8 % [facility] ([place]) Comment: Interpretive Data Percent cell count reference ranges are not reported, since discordance with absolute values may lead to misinterpretation of CBC data. Current Interpretive Data was last revised on 2017. Eosinophil pct 3.5 % [facility] ([place]) Comment: Interpretive Data Percent cell count reference ranges are not reported, since discordance with absolute values may lead to misinterpretation of CBC data. Current Interpretive Data was last revised on 2017. Basophil pct 1.1 % [facility] ([place]) Comment: Interpretive Data Percent cell count reference ranges are not reported, since discordance with absolute values may lead to misinterpretation of CBC data. Current Interpretive Data was last revised on 2017. Blood 10/01/2024 7:47 AM CDT 10/01/2024 7:52 AM CDT us Lauro Finch MD LAB BLOOD ORDERABLES Final Res ult SONYA RAJI (JOVANNY) [address] [facility] Department [place] [address] * CBC with auto differential (10/01/2024 7:47 AM CDT) WBC 7.1 3.8 - 9.9 K/cumm Hgb 13.7 11.9 - 15.5 g/dL [facility] ([place]) Hct 40.3 35.6 - 45.5 % [facility] ([place]) Plt 308 150 - 400 K/cumm [facility] ([place]) MPV 11.1 9.1 - 12.3 fL [facility] ([place]) RBC 4.86 3.90 - 5.20 M/cumm [facility] ([place]) MCV 82.9 81.3 - 96.4 fL [facility] ([place]) MCH 28.2 27.1 - 33.3 pg [facility] ([place]) MCHC 34.0 32.3 - 35.7 g/dL [facility] ([place]) RDW CV 14.4 11.1 - 14.9 % [facility] ([place]) RDW SD 43.8 35.7 - 48.1 fL [facility] ([place]) NRBC abs 0.00 0.00 - 0.01 K/cumm [facility] ([place]) Blood Venous blood specimen / Unknown 10/01/2024 7:47 AM CDT 10/01/2024 7:52 AM CDT Lauro Finch MD LAB BLOOD ORDERABLES Final Res ult Performing Organization Address City/[facility]/ZIP Co de Phone Number SONYA ALEGRIA (JOVANNY) [address] [facility] [place] [address] * (ABNORMAL) Lipase (10/01/2024 7:47 AM CDT) Pathologist [facility] Lipase 9(L) 10 - 99 Units/L Blood Venous blood specimen / Unknown 10/01/2024 7:47 AM CDT 10/01/2024 7:52 AM CDT Lauro Finch MD LAB BLOOD ORDERABLES Final Res ult SONYA ALEGRIA (JOVANNY) [address] [facility] [place] [address] * Comprehensive metabolic panel (10/01/2024 7:47 AM CDT) Sodium 135 135 - 145 mmol/L Potassium, pl 3.8 3.3 - 4.9 mmol/L [facility] ([place]) Chloride 98 97 - 110 mmol/L [facility] ([place]) CO2 24 22 - 32 mmol/L [facility] ([place]) Anion gap 13 2 - 15 mmol/L [facility] ([place]) BUN 13 6 - 25 mg/dL [facility] ([place]) Creatinine 0.75 0.60 - 1.10 mg/dL [facility] ([place]) Glucose 102 70 - 199 mg/dL [facility] ([place]) Comment: Interpretive Data Fasting glucose >/= 126 mg/dl is diagnostic for diabetes. Fasting is defined as no caloric intake for at least 8 hours. Fasting glucose between 100 mg/dl to 125 mg/dl is diagnostic of prediabetes. In a patient with classic symptoms of hyperglycemia or hyperglycemic crisis, a random glucose >/= 200 mg/dl is diagnostic for diabetes. In the absence of unequivocal hyperglycemia, results should be confirmed by repeat testing. The classification and Diagnosis of Diabetes Diabetes Care 202; 46: S19-S40. Current interpretive data was last revised 2022. Calcium 9.5 8.5 - 10.3 mg/dL [facility] ([place]) Bilirubin, total 0.8 0.1 - 1.2 mg/dL [facility] ([place]) Protein, pl 7.1 6.5 - 8.5 g/dL [facility] ([place]) Albumin 4.5 3.5 - 5.0 g/dL [facility] ([place]) Alk phos 53 40 - 130 Units/L [facility] ([place]) ALT 9 7 - 45 Units/L [facility] ([place]) AST 14 10 - 45 Units/L [facility] ([place]) Comment:Slightly Hemolyzed S pecimen Blood 10/01/2024 7:47 AM CDT 10/01/2024 7:52 AM CDT us Lauro Finch MD LAB BLOOD ORDERABLES Final Res ult [facility] (CULDESAC) 1 [facility] [place], [place] [id number] from Last 3 Months Insurance [facility] Care Teams Public Health Sanitarian Technician Relationship Specialty Start Date End Date No, Physician PCP - General 05/14/24
--- OUTSIDE RECORDS SUMMARY | 2024-10-19 11:59 | XMS_ITS | Continuity of Care Document ---
Author Organization [facility] Address [address] [facility] [place] [address] Phone Care Team Providers Care Rotary Helper Name Role Phone Mickey Valencia MD Unavailable Unavailable Allergies, Adverse Reactions, Alerts Substance Reaction Status Criticality No Known Allergies Active No Inform ation Medications Medication Instructions Dosage Effective Dates (start - stop) Status Comments Robaxin-750 750 mg tablet take 1 tablet by oral route every 6 hours as needed 750 MG - Active avoid driving or operaet machines amitriptyline 10 mg tablet take 1 tablet by oral route every bedtime 10 MG - Active venlafaxine 37.5 mg tablet take 1 tablet by oral route 2 times every day with food 37.5 MG - Active Procedures Procedure Date PREV VISIT, NEW, AGE 18-39 Advance Directives Directive Yes / No Effective Date File Name No Information Encounters Encounter Description Practice Location Reason(s) For Visit Diagnoses Date Provider Providers Copied on Encounter PREV VISIT, NEW, AGE 18-39 [facility], [facility] [place], [place], [id number], tel:[phone] [facility] Physical (chief complaint) Encntr for general adult medical exam w/o abnormal findings Erik Arevalo. [address] [facility] [place], [id number], [place]. tel:[phone] Referring Provider: Mickey Valencia [address] [place], [place], [id number]. tel:[phone] Family History Family Member Type Diagnosis Age At Onset Father Problem (finding) Unknown Mother Problem (finding) Alive and well Sister Problem (finding) Alive and well Payers Payer name Insurance type Covered republican ID Magan rios(s) No Information Social History Type Description Quantity Date Captured Comments Alcohol Use Details No Caffeine Use Details Unknown Tobacco Use Status Smoker Smoking Status Current every day smoker Non-Smoking Tobacco Use Details : No Details Available : No Details Available Sex Female Vital Signs Date / Time: Height Weight BMI Pulse Rate Blood Pressure Temperature Respiratory Rate Body Surface Area Head Circumference BMI percentile Pulse Ox Inhaled Ox 3:35 PM 115.00 lbs 89 /min 116/86 mm[Hg] 98.1 F 18 /min Chief Complaint And Reason For Visit From encounter dated '02/24/2016 13:30'. Physical (chief complaint). Description: Pt needs annualk physical. Pt has chronic pain due to fibromyalgia. Pt feels tired all the time. Pt has pain upper back, upper leg, arms and low back. Pt denies any scaitia. Pt denies any loss of bowel ro bladder control. pt has migraine headache as well. pttold me she has diagnosis of fibromyalgia. Pt used to take lyrica but did not work. Pt tried neurnotin also but did not work. pt states that the pain is sharp and is getting worse pt has difficulty holding her baby due to pain. Pt denies any vision problem. Pt has headache about twice per week. Pt feels depressed since she canot enjoy her daily activity. NO suicidal or homicidal thought. Pt denies any numnbess. Plan Of Treatment Date Type Action Status No Information History Of Present Illness Encounter Date Complaint History Of Prese nt Illness Physical Pt needs annualk physical. Pt has chronic pain due to fibromyalgia. Pt feels tired all the time. Pt has pain upper back, upper leg, arms and low back. Pt denies any scaitia. Pt denies any loss of bowel ro bladder control. pt has migraine headache as well. pt told me she has diagnosis of fibromyalgia. Pt used to take lyrica but did not work. Pt tried neurnotin also but did not work. pt states that the pain is sharp and is getting worse pt has difficulty holding her baby due to pain. Pt denies any vision problem. Pt has headache about twice per week. Pt feels depressed since she canot enjoy her daily activity. NO suicidal or homicidal thought. Pt denies any numnbess. Instructions Date Instruction Additional Infor thomas No Information Assessments Type Assessment Date assessment Encntr for general adult medical exam w/o abnormal findings Mental Status Date Cognitive Assessment Orientation - [place] ed to time, place, person, situation.
--- OUTSIDE RECORDS SUMMARY | 2024-10-19 11:59 | XMS_ITS | Referral Summary ---
Author Organization [facility] Address [address] [place] [address] Care Team Providers Care Lace Cutter Name Role Phone No, Physician Primary Care Provider [phone] Encounters Date Type Department Care Team Description 10/01/2024 7:58 AM CDT - 10/01/2024 9:46 AM CDT Emergency [facility] Emergency Department [address] [place] [address] Lauro Finch MD Nausea and vomiting, unspecified vomiting type (Primary Dx) Discharge Disposition: Discharge to home or self care from Last 3 Months Allergies No known active allergies Medications ALPRAZolam [...] Active Active Problems No known active problems Immunizations Immunization Administration Dates Next Due Tdap 05/01/2018(Deferred: Patient Ref used) Social History Tobacco Use Types Packs/Day Years [...] on file 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 Source: [facility] [email or web address] Current Interpretive Data was last revised on 2017 Protein, ur ql 2+(A) Negative [facility] ([place]OV[place]) Glucose, ur ql Trace(A) Negative [facility] ([place]OV[place]NY) Ketones, ur 1+(A) Negative [facility] ([place]OV[place]NY) Bilirubin, ur 1+(A) Negative [facility] ([place]) Blood, ur Negative Negative [facility] ([place]) Urobilinogen, ur 4.0(A) <2.0 mg/dL [facility] ([place]) Nitrite, ur Negative Negative [facility] ([place]OV[place]NY) Leukocyte esterase, ur 3+(A) Negative [facility] ([place]) UA reflex comment Reflex to microscopic UA will be performed. [facility] ([place]) Urine 10/01/2024 8:28 AM CDT 10/01/2024 8:30 AM CDT Lauro Finch MD LAB MICROBIOLOGY - GENERAL ORD ERABLES Final Result Performing Organization Address [facility]/ZIP Co de Phone Number SONYA ALEGRIA (JOVANNY) [address] [facility] [place] [address] * (ABNORMAL) Urinalysis, microscopic only (10/01/2024 8:28 AM CDT) Pathologist [facility] WBC, ur 11-20(A) 0 - 5 /HPF RBC, ur 0-2 0 - 2 /HPF [facility] (JOVANNY) Epithelial cells, squamous, ur 11-20(A) 0 - 5 /HPF [facility] ([place]OV[place]NY) Comment:Suggestive of contam ination. Consider recollection by clean catch. Bacteria, ur Trace(A) [facility] (JOVANNY) Mucous, ur Present(A) [facility] (JOVANNY) Calcium oxalate crystals, ur 2+(A) [facility] ([place]) Hyaline casts, ur 6-10 0 - 10 /LPF [facility] (JOVANNY) Culture Reflex Comment Reflex to urine culture will be performed. [facility] (JOVANNY) Urine 10/01/2024 8:28 AM CDT 10/01/2024 8:30 AM CDT Lauro Finch MD LAB URINE ORDERABLES Final Res ult SONYA ALEGRIA (JOVANNY) [address] [facility] [place] [address] * eGFR (10/01/2024 7:47 AM CDT) Pathologist [facility] eGFR >90 >=60 mL/min/1. 73 [...] MD LAB BLOOD ORDERABLES Final Res ult [facility] ([place]) [address] [facility] [place] [address] * Differential, auto (10/01/2024 7:47 AM CDT) [...] revised on 2017. Monocyte pct 5.8 % [facility] (JOV[place]NY) Comment: Interpretive Data [...] MD LAB BLOOD ORDERABLES Final Res ult [facility] (JOV[place]NY) [address] [facility] Department of Laboratories [place], [place] [id number] * CBC with auto differential (10/01/2024 7:47 [...] RDW SD 43.8 35.7 - 48.1 fL [facility] (JOVANNY) NRBC abs 0.00 0.00 - 0.01 K/cumm [facility] (JOVANNY) Blood Venous blood specimen / Unknown 10/01/2024 7:47 AM CDT 10/01/2024 7:52 AM CDT Lauro Finch MD LAB BLOOD ORDERABLES Final Res ult [facility] (JOV[place]) 1 [facility] [email or web address] [address] * (ABNORMAL) Lipase (10/01/2024 7:47 AM CDT) Pathologist [facility] Lipase 9(L) 10 - 99 Units/L Blood Venous blood specimen / Unknown 10/01/2024 7:47 AM CDT 10/01/2024 7:52 AM CDT Lauro Finch MD LAB BLOOD ORDERABLES Final Res ult Performing Organization Address City/[facility]/ZIP Co de Phone Number [facility] (JOV[place]NY) 1 [facility] [email or web address] [address] * Comprehensive metabolic panel (10/01/2024 7:47 AM CDT) Sodium 135 135 - 145 mmol/L Potassium, pl 3.8 3.3 - 4.9 mmol/L [facility] (JOVANNY) Chloride 98 97 - 110 mmol/L [facility] (JOV[place]NY) CO2 24 22 - 32 mmol/L [facility] (JOV[place]NY) Anion gap 13 2 - 15 mmol/L [facility] (JOV[place]) BUN 13 6 - 25 mg/dL [facility] ([place]) Creatinine 0.75 0.60 - 1.10 mg/dL [facility] ([place]OV[place]) Glucose 102 70 - 199 mg/dL [facility] (JOV[place]NY) Comment: Interpretive Data Fasting glucose >/= [...] LAB BLOOD ORDERABLES Final Res ult [facility] (JOVANNY) [address] [facility] [place] [address] from Last 3 Months Insurance [employer] [facility] Care Teams Lace Cutter Relationship Specialty Start Date End Date No, Physician PCP - General 05/14/24
--- OUTSIDE RECORDS SUMMARY | 2024-10-19 12:00 | XMS_ITS ---
Author Organization [facility] Address [address] [place] [address] Care Team Providers Care Liquid [employer] Operator Name Role Phone Jasmynejavan Mildredjoe Primary Care Provider Laurenjorjelatishaifeoma Archana Unavailable [phone] Allergies No Known Allergies Results Component Value Reference Range Notes 12 Panel Urine Drug Screen Reviewed date:09/11/2024 08:37:53 AM Interpretation: Performing Lab: Notes/Report: THC neg RUTHANN POS MOP (OPI) neg AMP neg MET neg BAR neg BZO neg MDMA neg MTD neg OXY POS PCP neg BUP POS REASON FOR VISIT Walk-In Medications Medication SIG (Take, Route, Frequency, Duration) Notes Start Date End Date Status Senna 8.6 MG 1-2 tablets at bedtime as needed Orally Once a day for 30 days As needed for constipation 09/11/2024 Active Pregabalin 150 MG 1 capsule Orally 2 x daily [facility] [place] Active traZODone HCl 100 MG 1 tablet at bedtime Orally Once a day for 30 days 05/15/2024 Active Ondansetron HCl 4 MG 1 tablet Orally up to three times daily As needed nausea 06/15/2024 Active Buprenorphine HCl-Naloxone HCl 12-3 MG 1 film under the tongue and allow to dissolve Sublingual Three times a day for 30 days 09/11/2024 Active Social History Tobacco Use: Social History Observation Description Date Details (start date - stop date) Current Smoker NA - NA Sex Assigned At : Social History Observation Description Sex Assigned At Female Tobacco Control (Standard) Question Answer Notes Tobacco use: Current every day smoker Additional Findings: Tobacco user Light cigarett e smoker (1-9 cigs/day) AUDIT-C (Standard) Question Answer Notes Did you have a drink contain ing alcohol in the past year? Yes How often did you have a dri nk containing alcohol in the past year? Monthly or less (1 point) How many drinks did you have on a typical day when you were drinking in the past year? 1 or 2 drinks (0 point) How often did you have six o r more drinks on one occasion in the past year? Never (0 point) Points 1 Interpretation Negative Vital Signs Weight 129 lb 4 oz lbs 09/11/2024 BMI 25.24 kg/m2 09/11/2024 Blood pressure systolic 132 mm Hg 09/12/19 25 Blood pressure diastolic 92 mm Hg 025 Oximetry 98 % 09/11/2024 Heart Rate 78 /min 09/11/2024 Height 60 in 09/11/2024 Respiratory Rate 16 /min 09/11/2024 Encounters Encounter Location Date Provider Diagnosis [address] [place] [address] 09/11/2024 Archana David Opioid use disorder F11.99 Assessments Encounter Date Diagnosis (ICD Code) Assessment Notes Treatment Notes Treatment Clinical Notes Section Notes 09/11/2024 Opioid use disorder (ICD-10 - F11.99) Patient denies use of oxycodone. Will send for confirmation. 09/11/2024 Other Encouraged non-use of cocaine. Patient declines referrals to psychiatry, counseling, peer recovery today. Discussed potentials risks including cardiovascular complications, stroke, seizures, sudden . Patient agrees to take medication as prescribed. Discussed medication side effects, adverse effects, risks, benefits, as well as interactions. Encouraged non-use of opioids and other illicit substances. Has naloxone. Discontinuing buprenorphine increases the risk of overdose upon return to illicit opioid use. Use of alcohol or benzodiazepines with buprenorphine increases the risk of overdose and . Education provided about safe storage of medications. Encouraged participation in recovery groups/counseling services. Contact office with questions or concerns. Patient may self-administer their own medications or may self-administer their own oral medications per [place] Protocol. Plan Of Treatment Medication Medication Name Sig Start Date Stop Date Notes Senna 8.6 MG 1-2 tablets at bedti me as needed Orally Once a day for 30 days 09/11/2024 Buprenorphine HCl-Naloxone H Cl 12-3 MG 1 film under the tongue and allow to dissolve Sublingual Three times a day for 30 days 09/11/2024 Treatment Notes Assessment Notes Opioid use disorder Patient denies use o f oxycodone. Will send for confirmation. Other Encouraged non-use of cocaine. Patient declines referrals to psychiatry, counseling, peer recovery today. Discussed potentials risks including cardiovascular complications, stroke, seizures, sudden . Patient agrees to take medication as prescribed. Discussed medication side effects, adverse effects, risks, benefits, as well as interactions. Encouraged non-use of opioids and other illicit substances. Has naloxone. Discontinuing buprenorphine increases the risk of overdose upon return to illicit opioid use. Use of alcohol or benzodiazepines with buprenorphine increases the risk of overdose and . Education provided about safe storage of medications. Encouraged participation in recovery groups/counseling services. Contact office with questions or concerns. Next Appt Details Follow Up: 4 Weeks, Reason: MAR f/u Progress Notes * Aidan VICTORIAObinnaOB:1984 (39 yo F)Acc No.[id number]:09/11/2024 Patient: Vijaya CUMMINGS Provider: Jewell David, MSN, MAILROOM SUPERVISOR, PMHNP-BC :1985 A ge:39 Y S ex:Female Date:09/11/2024 [facility] [address] [facility] Pcp:Becky Ron Check In:08:25 AM OBJECTIVE C DEVELOPER Subjective: * Chief Complaints: * W alk-In * HPI: I nterim History: Emergency room visit N o. W as hospitalized N o.? D epression Screening: PHQ-9 L ittle interest or pleasure in doing things S everal days, F eeling down, depressed, or hopeless S everal days, T rouble falling or staying asleep, or sleeping too much S everal days, F eeling tired or having little energy S everal days, P oor appetite or overeating S everal days, F eeling bad about yourself or that you are a failure, or have let yourself or your family down N ot at all, T rouble concentrating on things, such as reading the newspaper or watching television S everal days, M oving or speaking so slowly that other people could have noticed; or the opposite, being so fidgety or restless that you have been moving around a lot more than usual N ot at all, T houghts that you would be better off or of hurting yourself in some way N ot at all, T otal Score?6, I nterpretation M ild Depression. C SSRS Interpretation and Follow Up Plan: CSSRS Interpretation and Follow Up Plan C SSRS Screen documented using SF Y es, R isk Disposition from SF L ow - No Follow Up Plan Required, F ollow Up Plan N o Follow Up Plan required at this time.. S creening: [place] Suicide Severity Rating Scale (LF) D o you want to initiate with S creener form, 1 . Wish to be : Have you wished you were or wished you could go to sleep and not wake up? N o, 2 . Suicidal Thoughts: Have you actually had any thoughts of killing yourself? N o, 6 . Suicide Behavior Question: Have you ever done anything,started to do anything, or prepared to end your life? N o, I nterpretation: L ow Risk. P reventative Health and Wellness follow-up: Action Plans for Clinical Quality Measures: C ervical Cancer Screening: N ot addressed during this visit. See notes for details.. . M AR follow-up: MAR walk-in, 4 week f/u Doing better with films, feels current dose is effective. Denies opioid cravings or setbacks. Having occasional constipation. Reports occasional use of cocaine, last used over the weekend. Denies oxycodone or other opioid use. Medication Monitoring and Risk Mitigation U p-to-date on ASAM recommended lab testing? Y es, P rescribed a buprenorphine product? Y es, H as patient had a buprenorphine and metabolite lab ordered/collected? Y es (see notes for date of last metabolite testing), D ate of last buprenorphine and metabolite 0 09/11/2024, P rescription Drug Monitoring Program Review Y es. No concerns at this time., P regi to address any concerns identified: I n-office visits required at this time.. C ravings, Setbacks, Substance use, and Stressors C ravings since last visit: N o. Patient denies cravings since last visit., S etbacks since last visit? N o, patient denies setbacks since last visit., M isuse of substances since last visit: Y es, patient admits. See notes. cocaine, S tressors N o, patient denies stressors at this time.. W ithdrawal and Intoxication Symptoms I ntoxication Symptoms: N o signs of intoxication are present during visit., W ithdrawal Symptoms: N o withdrawal signs are present during visit.. M ental Health, Support System, and Social Determinants M ental Health Status S table., S upport Systems Include: P ersonal support system (see notes)., C ourt System Involvement? 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 R ecommended Wellness and Prevention Follow-up R ecommended Wellness and Prevention reviewed: R ecommended Wellness and Prevention not reviewed during this visit (see notes):. O ther concerns:?Other Concerns? N o., N arcan need N o. Patient already has Narcan.. * ROS: B asic ROS: Denies S ubstance Abuse. * Medical History: * Surgical History: T ubal 2011Gallbladder Removal 2009 * Hospitalization/Major Diagno stic Procedure: C hild x5 * Family History: F ather: alive. M other: alive. 1 sister(s) - healthy. 2 son(s) , 3 daughter(s) - healthy. . Paternal Cardiac History. * Social History: P joaquimary Social History: L iving Arrangement L iving Arrangement: I ndependent Living, I s this a supportive environment? Y es. A lcohol Use A lcohol Use Frequency: N ever. I llicit Substance Usage I llicit Substance Usage: Y es, I nterested in quitting: Y es. E mployment Status E mployment Status: U nemployed. T obacco Use: T obacco Control (Standard) T obacco use: C urrent every day smoker, A dditional Findings: Tobacco user L ight cigarette smoker (1-9 cigs/day). M iscellaneous: M ethod of learning P referred method of learning: R joe. D rug/Alcohol: A LARY-C (Standard) D id you have a drink containing alcohol in the past year? Y es,?How often did you have a drink containing alcohol in the past year? M onthly or less (1 point), H ow many drinks did you have on a typical day when you were drinking in the past year? 1 or 2 drinks (0 point), H ow often did you have six or more drinks on one occasion in the past year? N ever (0 point), P oints 1 , I nterpretation N egative. * Medications: T akingBuprenorphine HCl-Naloxone HCl 12-3 MG Film 1 film under the tongue and allow to dissolve Sublingual Three times a day Pregabalin 150 MG Capsule 1 capsule Orally [...] dissolve Sublingual Three times a day Taking Pregabalin 150 MG Capsule 1 capsule Orally [...] Verified] Objective: * Vitals: I nitials: cv, Wt:129 lb 4 oz, Ht: 60, BMI:25.24, BP:132/92, HR:78, Oxygen sat %:98, RR:16, LMP: n/a, Pain scale:0. * Examination: [facility] Physical Assessment: Intoxication and Withdrawal signs I ntoxication signs N o signs of intoxication are present during examination.Withdrawal Signs N o withdrawal signs are present during examination.. G eneral Examination: GENERAL APPEARANCE: a lert, pleasant, in no acute distress.? PSYCH: a lert, oriented x4, speech clear, good eye contact.? Assessment: * Assessment: 1. O pioid use disorder - F11.99 (Primary) Plan: * Treatment: Value Reference Range T HC neg * C OC POS * M OP (OPI) neg * A MP neg * M ET neg * B AR neg * B ZO neg * M DMA neg * M TD neg * O XY POS * P CP neg * B UP POS ?LAB: Comprehensive Drug Analysis, Urine (Ordered for 09/11/2024) Notes: Patient denies use of oxycodone. Will send for confirmation. ??2.?Others? Notes:Encouraged non-use of cocaine. Patient declines referrals to psychiatry, counseling, peer recovery today. Discussed potentials risks including cardiovascular complications, stroke, seizures, sudden . Patient agrees to take medication as prescribed. Discussedmedication side effects, adverse effects,risks, benefits, as well asinteractions. Encouraged non-use of opioids and other illicit substances. Hasnaloxone. Discontinuing buprenorphine increases the risk of overdose uponreturn to illicit opioid use. Use of alcohol or benzodiazepines withbuprenorphine increases the risk of overdose anddeath. Education providedabout safe storage of medications. Encouragedparticipation in recovery groups/counseling services. Contact office withquestions or concerns. ?? Clinical Notes: Patient may self-administer their own medications or may self- administer their own oral medications per [place] Protocol.?? * Recommended Wellness and Pre vention Guidelines: * S tatus A lert L ast Done N ext Due A ction Taken N ONCOMPLIANT A lcohol use screening - 0 09/11/2024 - N ONCOMPLIANT C ervical cancer screening - 0 09/11/2024 - N ONCOMPLIANT I nfluenza vaccine (high risk) - 0 09/11/2024 - * Procedure Codes: 9 9000 SPECIMEN [id number] BODY MASS INDEX [id number] MEDICAL NUTRITION, INDIV, [id number] BEHAV CHNG SMOKING 3-10 MIN * Preventive Medicine: Counseling: C are goal follow-up plan: B SD management provided Y Luis lam Normal BMI Follow-up L ifestyle education regarding diet. S MOKING: P atient counselled on the dangers of tobacco use and urged to quit. . . * Follow Up: 4 Weeks (Reason: SEP f/u) * * Sign off status: Completed true * Provider: Jewell David, MSN, MAILROOM SUPERVISOR, PMHNP-BC Date: 0 09/11/2024 Generated for Printing/Faxing/eTransmitting on: 0 10/19/2024 11:59 AM CDT History [...] as reading the newspaper or watching television: Several days Moving or speaking so slowly that other people could have noticed; or the opposite, being so fidgety or restless that you have been moving around a lot more than usual: Not at all Thoughts that you would be b amanda off or of hurting yourself in some way: Not at all Total Score: 6 Interpretation: Mild Depression Screening [place] Suicide Sev erity Rating Scale (LF) Do [...] time. Plan to address any concerns identified:: In-office visits required at this time. Cravings, Setbacks, Substanc e use, and Stressors Cravings since last visit:: No. Patient denies cravings since last visit. Setbacks since last visit?: No, patient denies setbacks since last visit. Misuse of substances since last visit:: Yes, patient admits. See notes. cocaine Stressors: No, patient denies stressors at this [...] and safe hous ing. 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 Referrals needed:: Provider recommended the following referrals, but the patient declined: Referrals declined for:: Recovery meetings/recovery support peer, Primary care services, Psychiatric care services Recommended Wellness and Pre vention Follow-up Recommended Wellness and Prevention reviewed:: Recommended Wellness and Prevention not reviewed during this visit (see notes): Other concerns: Other Concerns?: No. Narcan need: [...] Up Plan requir ed at this time. Examination Category Sub-Category Detail Notes Category Not es General Examination GENERAL APPEARANCE: alert, p leasant, in no acute distress PSYCH: alert, oriented x4, speech clear, good eye contact ASAM Physical Assessment Intoxication an d Withdrawal signs Intoxication signs: No signs of intoxication are present during examination. Withdrawal Signs: No withdrawal signs ar e present during examination.
--- OUTSIDE RECORDS SUMMARY | 2024-10-19 12:00 | XMS_ITS ---
Author Organization [facility] Address [address] [place] [address] Care Team Providers Care Textile Chemist Name Role Phone Jasmynejavan Mildredjoe Primary Care Provider Laurenjorjelatishaifeoma Archana Unavailable [phone] Allergies No Known Allergies Results Component Value Reference Range Notes 12 Panel Urine Drug Screen Reviewed date:08/14/2024 08:32:01 AM Interpretation: Performing Lab: Notes/Report: THC neg RUTHANN POS MOP (OPI) neg AMP neg MET neg BAR neg BZO neg MDMA neg MTD neg OXY neg PCP neg BUP POS REASON FOR VISIT Walk-In Medications Medication SIG (Take, Route, Frequency, Duration) Notes Start Date End Date Status traZODone HCl 100 MG 1 tablet at bedtime Orally Once a day for 30 days 05/15/2024 Active Pregabalin 150 MG 1 capsule Orally 2 x daily [facility] Lindsey Active Buprenorphine HCl-Naloxone HCl 12-3 MG 1 film under the tongue and allow to dissolve Sublingual Three times a day for 30 days 08/14/2024 Active Ondansetron HCl 4 MG 1 tablet Orally up to three times daily As needed nausea 06/15/2024 Active Social History Tobacco Use: Social History Observation Description Date Details (start date - stop date) Current Smoker NA - NA Sex Assigned At : Social History Observation Description Sex Assigned At Female Tobacco Control (Standard) Question Answer Notes Tobacco use: Current every day smoker Additional Findings: Tobacco user Light cigarett e smoker (1-9 cigs/day) Vital Signs Height 60 in 08/14/2024 BMI 27.56 kg/m2 08/14/2024 Weight 141 lb 2 oz lbs 08/14/2024 Respiratory Rate 16 /min 08/14/2024 Oximetry 98 % 08/14/2024 Heart Rate 76 /min 08/14/2024 Blood pressure systolic 100 mm Hg 08/14/19 25 Blood pressure diastolic 70 mm Hg 025 Encounters Encounter Location Date Provider Diagnosis [facility] [address] [place] [address] [place] [address] 08/14/2024 Archana David Opioid use disorder F11.99 and Cocaine abuse F14.10 Assessments Encounter Date Diagnosis (ICD Code) Assessment Notes Treatment Notes Treatment Clinical Notes Section Notes 08/14/2024 Opioid use disorder (ICD-10 - F11.99) 08/14/2024 Cocaine abuse (ICD-10 - F14.10) 08/14/2024 Other Mulitple UDS positive for cocaine. Discussed cardiovascular risks including , discussed mental health risks. Encouraged non-use. Previously prescribed methadone 170mg/day. Patient agrees to take medication as prescribed. [...] services. Contact office with questions or concerns. Plan Of Treatment Medication Medication Name Sig Start Date Stop Date Notes Buprenorphine HCl-Naloxone H Cl 12-3 MG 1 film under the tongue and allow to dissolve Sublingual Three times a day for 30 days 08/14/2024 Sublocade 300 MG/1.5ML 1.5 mL Subcutaneo us every 28 days 07/10/2024 Buprenorphine HCl-Naloxone H Cl 8-2 MG 1 film under the tongue and allow to dissolve Sublingual three times daily 07/27/2024 Treatment Notes Assessment Notes Other Mulitple UDS positive for cocaine. Discussed cardiovascular risks including , discussed mental health risks. Encouraged non-use. Previously prescribed methadone 170mg/day. Patient agrees to take medication as prescribed. 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 C SSRS Interpretation and Follow Up Plan: CSSRS Interpretation and Follow Up Plan C SSRS Screen documented using SF Y es, R isk Disposition from L ow - No Follow Up Plan Required, F ollow Up Plan N o Follow Up Plan required at this time.. S creening: [place] Suicide Severity Rating Scale (LF) 1 . Wish to be : Have [...] for details.. . M AR follow-up: MAR walk-in Feels Sublocade was not effective. Requiring daily films to treat opioid cravings and withdrawal symptoms. Would like to switch back to previous dose of films. Last Sublocade injection 07/10 Admits to recent cocaine use. States, I don't use very often . Medication Monitoring and Risk Mitigation U p-to-date on [facility] recommended lab testing? Y es, P rescribed a buprenorphine product? Y es, H as patient had a buprenorphine and metabolite lab ordered/collected? Y es (see notes for date of last metabolite testing), D ate of last buprenorphine and metabolite 1 07/15/2023, P rescription Drug Monitoring Program Review Y es. No concerns at this time., P regi to address any concerns identified: N o concerns identified. Will continue treatment plan as is.. C ravings, Setbacks, Substance use, and Stressors C ravings since last visit: Y es. See notes., S etbacks since last visit? N o, patient denies setbacks since last visit., M isuse of substances since last visit: Y es, patient admits. See notes. cocaine, S tressors N o, patient denies stressors at this time.. W ithdrawal and Intoxication Symptoms I ntoxication Symptoms:?No signs of intoxication are present during visit., W ithdrawal Symptoms: A bdominal cramps, diarrhea, vomiting.. M ental Health, Support System, and Social Determinants M ental Health Status S table., S upport Systems Include: P ersonal support system (see notes)., Court System Involvement? 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 R ecommended Wellness and Prevention Follow-up R ecommended Wellness and Prevention reviewed: R ecommended Wellness and Prevention not reviewed during this visit (see notes):. Other concerns: O ther Concerns? N o., N arcan need N [...] of learning P referred method of learning: Mitch diaz. * Medications: T akingPregabalin 150 MG Capsule 1 capsule Orally 2 x daily , Notes to Pharmacist: [facility] BethaltoBuprenorphine HCl-Naloxone HCl 8-2 MG Film 1 film under the tongue and allow to dissolve Sublingual three times daily traZODone HCl 100 MG Tablet 1 tablet at bedtime Orally Once a day Ondansetron HCl 4 MG Tablet 1 tablet Orally up to three times daily As needed nauseaTaking Pregabalin 150 MG Capsule 1 capsule Orally 2 x daily , Notes to Pharmacist: [facility] BethaltoTaking Buprenorphine HCl-Naloxone HCl 8-2 MG Film 1 film under the tongue and allow to dissolve Sublingual three times daily Taking traZODone HCl 100 MG Tablet 1 tablet at bedtime Orally Once a day Taking Ondansetron HCl 4 MG Tablet 1 tablet Orally up to three times daily As needed nauseaDiscontinuedSublocade 300 MG/1.5ML Solution Prefilled Syringe 1.5 mL Subcutaneous every 28 days Medication List reviewed and reconciled with the patientDiscontinued Sublocade 300 MG/1.5ML Solution Prefilled Syringe 1.5 mL Subcutaneous every 28 days Medication List reviewed and reconciled with the patient * Allergies: N .K.D.A.no[Allergies Verified] Objective: * Vitals: I nitials:cv, Wt:141 lb 2 oz, Ht:60, BMI:27.56, BP:100/70, HR:76, Oxygen sat %:98, RR:16, LMP:N/A, Pain scale:2. * Examination: A JESU Physical Assessment: Intoxication and Withdrawal signs I ntoxication signs N o signs of intoxication are present during examination.Withdrawal Signs N o withdrawal signs are present during examination.. G eneral Examination: GENERAL APPEARANCE: a lert, pleasant, in no acute distress.? PSYCH: a lert, oriented x4, speech clear, good eye contact.? Assessment: * Assessment: 1. O pioid use disorder - F11.99 (Primary) 2 . C ocaine abuse - F14.10 Plan: * Treatment: Value Reference Range T HC neg * C OC POS * M OP (OPI) neg * A MP neg * M ET neg * B AR neg * B ZO neg * M DMA neg * M TD neg * O XY neg * P CP neg * B UP POS 2.?Others? Notes:Mulitple UDS positive for cocaine. Discussed cardiovascular risks including , discussed mentalhealth risks. Encouraged non-use. Previously prescribed methadone 170mg/day. Patient agrees to take medication as prescribed. [...] services. Contact office withquestions or concerns. ?? * Recommended Wellness and Pre vention Guidelines: * Tyrone mittal A lert L ast Done N ext Due A ction Taken N ONCOMPLIANT A lcohol use screening - 0 08/14/2024 - N ONCOMPLIANT C ervical cancer screening - 0 08/14/2024 - N ONCOMPLIANT I nfluenza vaccine (high risk) - 0 08/14/2024 - * Procedure Codes: 9 9000 SPECIMEN [id number] BODY MASS INDEX [id number] MEDICAL NUTRITION, INDIV, [id number] BEHAV CHNG SMOKING 3-10 MIN * Preventive Medicine: Counseling: C are goal follow-up plan: B IA management provided Y es, Luis monteze Normal BMI Follow-up L ifestyle education regarding diet. S MOKING: P atient counselled on the dangers of tobacco use and urged to quit. . . * Follow Up: 4 Weeks (Reason: Sep/) * * D WRAPPING MACHINE FEEDER Sign off status: Completed true * Provider: Jewell David, MSN, FACILITY ADMINISTRATOR, PMHNP-BC Date: 0 08/14/2024 Generated for Printing/Faxing/eTransmitting on: 0 10/19/2024 11:59 [...] S everal days Poor appetite or overeating: Not at all Feeling bad about yourself o r that [...] Total Score: 5 Interpretation: Mild Depression Screening [place] Suicide Sev erity Rating Scale (LF) 1. Wish to be : Have you [...] testing) Date of last buprenorphine and metabolite: 05/15/2024 Prescription Drug Monitoring Program Rev iew: Yes. No concerns at this time. Plan to address any concerns identified:: No concerns identified. Will continue treatment plan as is. Cravings, Setbacks, Substanc e use, and Stressors Cravings since last visit:: Yes. See notes. Setbacks since last visit?: No, patient denies setbacks since last visit. Misuse of substances since last visit:: Yes, patient admits. See notes. cocaine Stressors: No, patient denies stressors at this time. Withdrawal and Intoxication Symptoms Int oxication Symptoms:: No signs of intoxication are present during visit. Withdrawal Symptoms:: Abdominal cramps, diarrhea, vomiting. Mental Health, Support Syste m, and Social Determinants Mental Health Status: Stable. Support Systems Include:: Personal suppo rt system (see notes). Court System Involvement?: No Housing Stability:: Stable and safe hous ing. 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 Referrals needed:: No referrals needed a t [...]
--- OUTSIDE RECORDS SUMMARY | 2024-10-19 12:00 | XMS_ITS | Patient Health Record ---
Author Organization [facility] Address [address] [place] [address] Care Team Providers Care Tonal Regulator Name Role Phone Becky Ron Primary Care Provider [phone] Demetrio Flowers Unavailable [phone] Boy Breezy Unavailable [phone] Frankie Archana Unavailable [phone] Allergies No Known Allergies Results Component Value Reference Range Notes 12 Panel Urine Drug Screen Reviewed date:08/14/2024 08:32:01 AM Interpretation: Performing Lab: Notes/Report: THC neg RUTHANN POS MOP (OPI) neg AMP neg MET neg BAR neg BZO neg MDMA neg MTD neg OXY neg PCP neg BUP POS 12 Panel Urine Drug Screen Reviewed date:09/11/2024 08:37:53 AM Interpretation: Performing Lab: Notes/Report: THC neg RUTHANN POS MOP (OPI) neg AMP neg MET neg BAR neg BZO neg MDMA neg MTD neg OXY POS PCP neg BUP POS Comprehensive Drug Analysis, Urine Reviewed date:09/18/2024 11:45:38 AM Interpretation: Performing Lab:[facility], [address] [place] [address], Phone - [phone], Director - Karl Notes/Report: ToxAssure, ToxAssure FLEX or MAT drug testing: -Technical component - Data analysis performed at [address], [address]. [phone]. Job Placement Officer Melyssa Bedolla MD Summary Report (Summary) FINAL COMPREHENSIVE DRUG ANALYSIS,UR Test Result Flag Units Drug Present Cocaine 786 ng/mg creat Benzoylecgonine >4167 ng/mg creat Source of cocaine is most commonly illicit, but cocaine is present in some topical anesthetic solutions. Benzoylecgonine is an expected metabolite of cocaine. Buprenorphine 489 ng/mg creat Norbuprenorphine >833 ng/mg creat Source of buprenorphine is a scheduled prescription medication. Norbuprenorphine is an expected metabolite of buprenorphine. Acetaminophen PRESENT Chlorpheniramine PRESENT Diphenhydramine PRESENT Doxylamine PRESENT Dextromethorphan PRESENT Dextrorphan/Levorphanol PRESENT Dextrorphan is an expected metabolite of dextromethorphan, an phcz-vpx-epscryj or prescription cough suppressant. Dextrorphan cannot be distinguished from the scheduled prescription medication levorphanol by the method used for analysis. Test Result Flag Units Ref Range Creatinine 120 mg/dL >=20 For clinical consultation, please call . PDF . Buprenorphine and Metabolite (Urine test) Reviewed date:05/24/2024 10:24:32 AM Interpretation: Performing Lab:[facility], [address], [place], Phone - [phone], Director - PhDAbudu Notes/Report: Clinical Information:CCU:[id number] LM Buprenorphine Positive Confirmation p erformed by Mass Spectrometry Buprenorphine Positive Buprenorphine Conf, MS, UR 963 Cutoff=10 ng/mL Norbuprenorphine Positive Norbuprenorphine Conf, MS, UR >2000 Cutoff=10 ng/mL Rapid Plasma Reagin (RPR) Te st With Reflex to Quantitative RPR and Confirmatory Treponema pallidum Antibodies Reviewed date:05/24/2024 10:24:33 AM Interpretation: Performing Lab:[facility], [address] [place] [address], Phone - [phone], Director - [facility] Notes/Report: RPR Non Reactive Non Reactive QuantiFERON-TB Gold Plus (18 0067) Reviewed date:05/24/2024 10:24:33 AM Interpretation: Performing Lab:[facility], [address] [place] [address], Phone - [phone], Director - [facility] Notes/Report: QuantiFERON Incubation Incubation performed. QuantiFERON-TB Gold Plus Negative Negative No response to M tuberculosis antigens detected. Infection with M tuberculosis is unlikely, but high risk individuals should be considered for additional testing (ATS/IDSA/CDC Clinical Practice Guidelines, 2017). The reference range is an Antigen minus Nil result of <0.35 IU/mL. Chemiluminescence immunoassay methodology QuantiFERON Criteria QuantiFERON-TB Gold Plus is a qualitative indirect test for M tuberculosis infection (including disease) and is intended for use in conjunction with risk assessment, radiography, and other medical and diagnostic evaluations. The QuantiFERON-TB Gold Plus result is determined by subtracting the Nil value from either TB antigen (Ag) value. The Mitogen tube serves as a control for the test. QuantiFERON TB1 Ag Value 0.01 QuantiFERON TB2 Ag Value 0.01 QuantiFERON Nil Value 0.00 QuantiFERON Mitogen Value >10.00 TSH Rfx on Abnormal to Free T4 Reviewed date:05/24/2024 10:24:33 AM Interpretation: Performing Lab:[facility], [address] [place] [address], Phone - [phone], Director - [facility] Notes/Report: TSH 3.010 0.450-4.500 uIU/mL Hepatitis C Virus Antibody w /Rflx to Quantitative Real-time PCR ([id number]) Reviewed date:05/24/2024 10:24:33 AM Interpretation: Performing Lab:[address], Phone - [phone], Director - [facility] Notes/Report: HCV Ab Non Reactive Non Reactive Interpretation: Not infected with HCV unless early or acute infection is suspected (which may be delayed in an immunocompromised individual), or other evidence exists to indicate HCV infection. Hepatitis B Surface Antigen (HBsAg Screen) Reviewed date:05/24/2024 10:24:33 AM Interpretation: Performing Lab:[address], Phone - [phone], Director - [facility] Notes/Report: HBsAg Screen Negative Negative CBC With Differential/Platel et* Reviewed date:05/24/2024 10:24:33 AM Interpretation: Performing Lab:[address], Phone - [phone], Director - [facility] Notes/Report: WBC 5.6 3.4-10.8 x10E3/uL RBC 5.17 3.77-5.28 x10E6/uL Hemoglobin 13.7 11.1-15.9 g/dL Hematocrit 42.5 34.0-46.6 % MCV 82 79-97 fL MCH 26.5 26.6-33.0 pg MCHC 32.2 31.5-35.7 g/dL RDW 14.2 11.7-15.4 % Platelets 330 150-450 x10E3/uL Neutrophils 48 Not Estab. % Lymphs 39 Not Estab. % Monocytes 7 Not Estab. % Eos 5 Not Estab. % Basos 1 Not Estab. % Neutrophils (Absolute) 2.6 1.4-7.0 x10E3/uL Lymphs (Absolute) 2.2 0.7-3.1 x10E3/uL Monocytes(Absolute) 0.4 0.1-0.9 x10E3/uL Eos (Absolute) 0.3 0.0-0.4 x10E3/uL Baso (Absolute) 0.1 0.0-0.2 x10E3/uL Immature Granulocytes 0 Not Estab. % Immature Grans (Abs) 0.0 0.0-0.1 x10E3/uL HIV Screen *HIV 1, 2 Ab, p24 Ag ([id number]) Reviewed date:05/24/2024 10:24:32 AM Interpretation: Performing Lab:[facility], [address], Phone - [phone], Director - [place] Notes/Report: HIV Ab/p24 Ag Screen Non Reactive Non Reactive HIV-1/HIV-2 antibodies and HIV-1 p24 antigen were NOT detected. There is no laboratory evidence of HIV infection. HIV Negative 12 Panel Urine Drug Screen Reviewed date:10/12/2024 09:26:22 AM Interpretation: Performing Lab: Notes/Report: THC neg RUTHANN POS MOP (OPI) neg AMP POS MET POS BAR neg BZO neg MDMA neg MTD neg OXY neg PCP neg BUP POS PDF Report Reviewed date:09/18/2024 11:45:38 AM Interpretation: Performing Lab:[facility], [address] [facility], Phone - [phone], Director - Karl Notes/Report: ToxAssure, ToxAssure FLEX or MAT drug testing: -Technical component - Data analysis performed at [facility], [address] [place] [address], [address]. [phone]. Job Placement Officer Melyssa Bedolla MD PDF Report1 [facility] 12 Panel Urine Drug Screen Reviewed date:07/10/2024 10:03:47 AM Interpretation: Performing Lab: Notes/Report: THC neg RUTHANN neg MOP (OPI) neg AMP neg MET neg BAR neg BZO neg MDMA neg MTD neg OXY neg PCP neg BUP POS 12 Panel Urine Drug Screen Reviewed date:06/15/2024 08:19:19 AM Interpretation: Performing Lab: Notes/Report: THC neg RUTHANN POS MOP (OPI) neg AMP neg MET neg BAR neg BZO neg MDMA neg MTD neg OXY neg PCP neg BUP POS 12 Panel Urine Drug Screen Reviewed date:07/27/2024 08:16:46 AM Interpretation: Performing Lab: Notes/Report: THC neg RUTHANN POS MOP (OPI) neg AMP neg MET neg BAR neg BZO neg MDMA neg MTD neg OXY neg PCP neg BUP POS 12 Panel Urine Drug Screen Reviewed date:06/04/2024 01:38:31 PM Interpretation: Performing Lab: Notes/Report: THC neg RUTHANN POS MOP (OPI) neg AMP neg MET neg BAR neg BZO neg MDMA neg MTD neg OXY neg PCP neg BUP POS CMP 14 Comprehensive Metabol ic Panel* Reviewed date:05/24/2024 10:24:33 AM Interpretation: Performing Lab:[facility], [address], Phone - [phone], Director - [facility] Notes/Report: Glucose 89 70-99 mg/dL BUN 10 6-20 mg/dL Creatinine 0.86 0.57-1.00 mg/dL eGFR 89 >59 mL/min/1.73 BUN/Creatinine Ratio 12 9-23 Sodium 145 134-144 mmol/L Potassium 4.0 3.5-5.2 mmol/L Chloride 106 96-106 mmol/L Carbon Dioxide, Total 23 20-29 mmol/L Calcium 9.8 8.7-10.2 mg/dL Protein, Total 7.0 6.0-8.5 g/dL Albumin 4.6 3.9-4.9 g/dL Globulin, Total 2.4 1.5-4.5 g/dL Bilirubin, Total 0.6 0.0-1.2 mg/dL Alkaline Phosphatase 65 44-121 IU/L AST (SGOT) 12 0-40 IU/L ALT (SGPT) 6 0-32 IU/L Lipid Panel* Reviewed date:05/24/2024 10:24:33 AM Interpretation: Performing Lab:[facility], [address] [facility], Phone - [phone], Director - [facility] Notes/Report: Cholesterol, Total 141 100-199 mg/dL Triglycerides 95 0-149 mg/dL HDL Cholesterol 28 >39 mg/dL VLDL Cholesterol Pino 18 5-40 mg/dL LDL Chol Calc (NIH) 95 0-99 mg/dL 12 Panel Urine Drug Screen Reviewed date:05/15/2024 01:24:56 PM Interpretation: Performing Lab: Notes/Report: THC POS RUTHANN POS MOP (OPI) neg AMP neg MET neg BAR neg BZO neg MDMA neg MTD POS OXY neg PCP neg BUP POS 12 Panel Urine Drug Screen Reviewed date:05/21/2024 02:16:37 PM Interpretation: Performing Lab: Notes/Report: THC neg RUTHANN POS MOP (OPI) neg AMP neg MET neg BAR neg BZO neg MDMA neg MTD neg OXY neg PCP neg BUP POS Reason For Referral No Information Medications Medication SIG (Take, Route, Frequency, Duration) Notes Start Date End Date Status Senna 8.6 MG 1-2 tablets at bedtime as needed Orally Once a day for 30 days As needed for constipation 09/11/2024 Active Pregabalin 150 MG 1 capsule Orally 2 x daily [facility] Active Ondansetron HCl 4 MG 1 tablet [...] Never (0 point) Points 1 Interpretation Negative Problems Problem Type SNOMED Code ICD Code Onset Dates Problem Status W/U Status Risk Notes Problem Mood disorder (71320462) Mood disorder (F39) Active confirmed Problem Cocaine abuse (24740449) Cocaine abuse (F14.10) Active confirmed Problem Overweight (256792186) Overweight (BMI 25.0-29.9) (E66.3) Active confirmed Problem Tobacco use (195301680) Tobacco use disorder (F17.200) Active confirmed Problem Opioid use disorder (9927592621) Opioid use disorder (F11.99) Active confirmed Vital Signs Heart Rate 103 /min 10/12/2024 Temperature 98.3 degrees Fahrenheit 07/27/2024 Respiratory Rate 16 /min 10/12/2024 Blood pressure diastolic 92 mm Hg 10/12/2024 Oximetry 98 % 10/12/2024 Height 60 in 10/12/2024 Blood pressure systolic 138 mm Hg 10/12/2024 Weight 124 lb 6 oz lbs 10/12/2024 BMI 24.29 kg/m2 10/12/2024 Encounters Encounter Location Date Provider Diagnosis [facility] [address] [facility] [place] [address] 05/15/2024 Demetrio Flowers Opioid use disorder F11.99 ; Mood disorder F39 ; Fatigue R53.83 ; Exposure to potential infection Z20.9 ; Lipid screening Z13.220 and Cocaine abuse F14.[address] [place] [address] 05/15/2024 Demetrio Flowers Exposure to potentia l infection Z20.9 ; Fatigue R53.83 ; Lipid screening Z13.220 and Opioid use disorder F11.[address] [place] [address] 05/21/2024 Archana David Opioid use disorder F11.99 ; Nicotine dependence, unspecified, uncomplicated F17.200 and Overweight (BMI 25.0-29.9) E66.[address] [place] [address] 06/04/2024 Archana David Opioid use disorder F11.99 ; Overweight (BMI 25.0-29.9) E66.3 and Nicotine dependence, unspecified, uncomplicated F17.[address] [address] 06/15/2024 Becky Ron Opioid use disorder F11.99 ; Overweight (BMI 25.0-29.9) E66.3 and Tobacco use disorder F17.[address] [place] [address] 07/10/2024 Archana Szlufik Opioid use disorder F11.[address] [place] [address] 07/27/2024 Breezy Brunson Opioid use disorder F11.99 ; Mood disorder F39 ; Overweight (BMI 25.0-29.9) E66.3 ; Nutritional counseling Z71.3 and Nicotine dependence, unspecified, uncomplicated F17.[address] [place] [address] 08/14/2024 Archana Aguilarlufik Opioid use disorder F11.99 and Cocaine abuse F14.[address] [place] [address] 09/11/2024 Archana Aguilarlufik Opioid use disorder F11.[address] [place] [address] 10/12/2024 Becky Ron Opioid use disorder F11.99 [facility] [address] [place] [address] 05/15/2024 Demetrio Flowers Opioid use disorder F11.99 and Mood disorder F39 [address] [place] [address] 06/15/2024 Breezy Brunson Opioid use disorder F11.99 Assessments Encounter Date Diagnosis (ICD Code) Assessment Notes Treatment Notes Treatment Clinical Notes Section Notes 05/15/2024 Mood disorder (ICD-10 - F39) PREDATED OUD 05/15/2024 Opioid use disorder (ICD-10 - F11.99) 05/15/2024 Opioid use disorder (ICD-10 - F11.99) 05/15/2024 Exposure to potential infection (ICD-10 - Z20.9) 05/21/2024 Nicotine dependence, unspecified, uncomplicated (ICD-10 - F17.200) 06/04/2024 Overweight (BMI 25.0-29.9) (ICD-10 - E66.3) 06/04/2024 Opioid use disorder (ICD-10 - F11.99) 06/15/2024 Overweight (BMI 25.0-29.9) (ICD-10 - E66.3) 06/15/2024 Opioid use disorder (ICD-10 - F11.99) 06/15/2024 Opioid use disorder (ICD-10 - F11.99) 07/10/2024 Opioid use disorder (ICD-10 - F11.99) 05/21/2024 Opioid use disorder (ICD-10 - F11.99) 07/27/2024 Mood disorder (ICD-10 - F39) 07/27/2024 Opioid use disorder (ICD-10 - F11.99) 08/14/2024 Opioid use disorder (ICD-10 - F11.99) 09/11/2024 Opioid use disorder (ICD-10 - F11.99) Patient denies use of oxycodone. Will send for confirmation. 10/12/2024 Opioid use disorder (ICD-10 - F11.99) 08/14/2024 Cocaine abuse (ICD-10 - F14.10) 05/15/2024 Mood disorder (ICD-10 - F39) 07/27/2024 Overweight (BMI 25.0-29.9) (ICD-10 - E66.3) 06/04/2024 Nicotine dependence, unspecified, uncomplicated (ICD-10 - F17.200) 06/15/2024 Tobacco use disorder (ICD-10 - F17.200) 05/21/2024 Overweight (BMI 25.0-29.9) (ICD-10 - E66.3) 05/15/2024 Fatigue (ICD-10 - R53.83) 05/15/2024 Fatigue (ICD-10 - R53.83) 05/15/2024 Lipid screening (ICD-10 - Z13.220) 05/15/2024 Exposure to potential infection (ICD-10 - Z20.9) 07/27/2024 Nutritional counseling (ICD-10 - Z71.3) 07/27/2024 Nicotine dependence, unspecified, uncomplicated (ICD-10 - F17.200) 05/15/2024 Lipid screening (ICD-10 - Z13.220) 05/15/2024 Opioid use disorder (ICD-10 - F11.99) 05/15/2024 Cocaine abuse (ICD-10 - F14.10) DISCUSSED CV AND MENTAL HEALTH RISKS OF COCAINE, INCLUDING . 05/15/2024 Other [place] ISSUES 05/21/2024 Other Client agrees to take medication as prescribed. Discussed [...] services. Contact office with questions or concerns. 06/04/2024 Other Discussed risks of cocaine use and encouraged non-use. Patient agrees to take medication as prescribed. [...] services. Contact office with questions or concerns. 06/15/2024 Other Patient agrees to take medication as prescribed. Discussed medication side effects, adverse effects, risks, benefits, as well as interactions. Encouraged non-use of opioids. Has naloxone. Recommended participation in recovery groups and/or counseling services. May contact office with questions or concerns. 07/10/2024 Other Suboxone films should only be utilized for severe cravings or withdrawal symptoms. Sublocade steady state achieved at 4-6 months (Sublocade package insert). Will plan to continue to reduce quantity of films each month. Patient agrees to take medication as prescribed. [...] services. Contact office with questions or concerns. Agrees to return to office in 28 days for next injection 07/27/2024 Other Potential side effects of buprenorphine discussed, as well as taking buprenorphine as prescribed. Dangers of using other controlled substances (prescribed or illegal/including benzodiazepines) with buprenorphine discussed. Patient understands taking other narcotics with buprenorphine could lead to respiratory distress and even . Patient understands that ALL treating providers/physicia ns should be informed of buprenorphine use as part of a Medication Assisted Treatment program 08/14/2024 Other Mulitple UDS positive for cocaine. [...] services. Contact office with questions or concerns. 09/11/2024 Other Encouraged non-use of cocaine. Patient [...] office with questions or concerns. Patient may self-administe r their own medications or may self-administe r their own oral medications per [place] Protocol. 10/12/2024 Other Discussed medication side effects, adverse effects, risks, benefits, as well as interactions. Encouraged non-use of opioids. Has naloxone. Recommended participation in recovery groups and/or counseling services. May contact office with questions or concerns. Plan Of Treatment No Information Insurance Providers Payer Name Payer Address Payer Phone Subscriber Number Group Number Insured Name Patient Relationship to Insured Coverage Start Date Coverage End Date [employer] [facility] Attn Claims Department [address] [place] [address] [phone] [id number] Vijaya Maier Self - patient is the insured 4 [facility] Attn Claims Department [address] [place] [address] [phone] [id number] Vijaya Maier Self - patient is the insured 2 Medications Administered Medication Instructions Date of Administration Dosage Notes Sublocade 06/15/2024 300 mg Jennifer Barbara CERVANTES 06/15/2024 09:14:19 AM HEALTH EDUCATION AIDE >Pt tolerated well. Sublocade 07/10/2024 300 mg Jennifer Barbara CERVANTES N 07/10/2024 10:43:18 AM HEALTH EDUCATION AIDE >Pt tolerated well. Medical (General) History Surgical History Surgery Date(Month/Year) Tubal 2012 Gallbladder Removal 2009 Hospitalization History Reason Date(Month/Year) Child x5
--- OUTSIDE RECORDS SUMMARY | 2024-10-19 12:01 | XMS_ITS | Continuity of Care Document ---
Author Organization [facility] Address [address] [facility] [place] [address] Phone Care Team Providers Care Corn Miller Name Role Phone Mickey Valencia MD Unavailable Unavailable Allergies, Adverse Reactions, Alerts Substance Reaction Status Criticality No Known Allergies Active No Inform ation Medications Medication Instructions Dosage Effective Dates (start - stop) Status Comments venlafaxine 37.5 mg tablet take 1 tablet by oral route 2 times every day with food 37.5 MG - Active amitriptyline 10 mg tablet take 1 tablet by oral route every bedtime 10 MG - Active Robaxin-750 750 mg tablet take 1 tablet by oral route every 6 hours as needed 750 MG - Active avoid driving or operaet machines Procedures Procedure Date PREV VISIT, NEW, AGE 18-39 Advance Directives Directive Yes / No Effective Date File Name No Information Encounters Encounter Description Practice Location Reason(s) For Visit Diagnoses Date Provider Providers Copied on Encounter PREV VISIT, NEW, AGE 18-40 [facility], [facility] [place], [id number], tel:[phone] [facility] Physical (chief complaint) Encntr for general adult medical exam w/o abnormal findings Erik Arevalo. [address] [facility] [place], [id number], [place]. tel:[phone] Referring Provider: Mickey Valencia [address] [place], [place], [id number]. tel:[phone] Family History Family Member Type Diagnosis Age At Onset Father Problem (finding) Unknown Mother Problem (finding) Alive and well Sister Problem (finding) Alive and well Payers Payer name Insurance type Covered green party ID Magan rios(s) No Information Social History [...] Mental Status Date Cognitive Assessment Orientation - [place] ed to time, place, person, situation.
== END 2024-10-19 12:03 | disposition left against medical advice (07) ==
LOC: EXPBETH 11:58
PROVIDERS: Emergency Provider Registered Nurse
DX: Z53.21 Procedure and treatment not carried out due to patient leaving prior to being seen by health care provider (principal)
CPT/HCPCS: 99199